=== PATIENT | female | born 1960 | race Caucasian/White ===

== ENCOUNTER 2016-08-26 06:45 | Emergency (ER) | payer OTHER ==
[2016-08-26] MEDS ORDERED: Nitrostat 0.4 MG (ED) SL ONE ×4 (07:20→08:02)
[2016-08-26] MEDS ORDERED: BABY ASPIRIN 81 MG CHEW PO ONE (07:22)
[2016-08-26] MEDS ORDERED: BABY ASPIRIN 81 MG CHEW ONE (07:26)
[2016-08-26] MEDS ORDERED: Sodium Chloride 0.9% 1000 ML 1,000 ML ONE (07:26)
[2016-08-26] MEDS ORDERED: Sodium Chloride 0.9% 1000 ML 1,000 ML IV SCH (07:30)
[2016-08-26 07:33] LABS: BASOPHIL % 0.5 % (0.0-0.4); Eosinophil % 1.4 % (0.00-5.0); Granulocytes % 63.3 % (36.0-66.0); Lymphocytes % 26.8 % (24.0-44.0); Mean Cell Volume 95.5 fl (78-100); Mean Corpuscular Hemoglobin 31.3 pg (26-32); Mean Platelet Volume 10.9 fl (6-9.5); Platelet Count 212 K/mm3 (150-450); Red Blood Count 4.44 M/mm3 (4.1-5.4); Red Cell Distribution Width 12.3 % (11.5-14.0); White Blood Count 5.6 K/mm3 (4.0-10.5)
[2016-08-26 07:49] LABS: INR 0.96 (0.8-3.0); PROTIME 10.8 SECONDS (9.95-12.35)
[2016-08-26 07:53] VITALS: PULSE 58
[2016-08-26] MEDS ORDERED: Zofran 4 MG/2 ML VIAL IV ONE (07:55)
--- NOTE | 2016-08-26 07:55 | ERPHSYRPT ---
- History of Present Illness Time Seen by Provider: 08/26/16 07:10 Historian: patient Exam Limitations: clinical condition Patient Subjective Stated Complaint: STATES THAT SHE HAS BEEN HAVING INTERMITTENT CP FOR ROUGHLY 3-4 DAYS WITH NAUSEA - STATES THAT PAIN IS GETTING WORSE, BEGINNING ON THE RIGHT CHEST AND RADIATING UP INTO THE RIGHT JAW AND EAR AND DOWN THE RIGHT ARM WITH EPIGASTRIC PAIN AND NAUSEA - Triage Nursing Assessment: AMBUALTORY TO TREATMENT AREA - STEADY GAIT - MOVES ALL EXTREMITIES WITH EQUAL STRENGTH. ALERT ORIENTED - FLAT AFFECT. SKIN PWD - NO RASH/INJURY. RESPS EASY- NON-LABORED Physician History: PATIENT WITH HISTORY OF CORONARY ARTERY DISEASE COMPLAINS OF SUBSTERNAL CHEST PAINS FOR 2-3 DAYS, RADIATES TO RIGHT SIDE OF JAW AND DOWN HER RIGHT ARM, AND DYSPNEA FOR 6 MONTHS. Timing/Duration: day(s) Activities at Onset: none Quality: pressure, sharpness Location: substernal Chest Pain Radiation: jaw, neck Severity of Pain-Max: moderate Severity of Pain-Current: moderate Modifying Factors: Improves With: nitroglycerin Prior Chest Pain/Cardiac Workup: cardiac cath Nitro Today/Relief: 0.4 mg x 2, provided by ED Aspirin Treatment Today: 81 mg x 4, provided by ED Allergies/Adverse Reactions: No Known Drug Allergies Allergy (Unverified 08/26/16 06:55) Home Medications: Carisoprodol 350 mg [Soma 350 mg] 350 mg PO BID 01/07/12 [History] Hydrocodone/APAP 5/325 [[place] 5/325 mg] 10 - 325 mg PO BID 01/07/12 [ History] Levothyroxine Sodium 150 Mcg [Synthroid 150 Mcg] 125 mcg PO DAILY 01/08/12 [ History] Aspirin 81 mg PO DAILY 08/26/16 [History] Magnesium Oxide 400 mg [Mag-Ox 400] 400 mg PO DAILY 08/26/16 [History] Hx Tetanus, Diphtheria Vaccination/Date Given: Yes Hx Influenza Vaccination/Date Given: No Hx Pneumococcal Vaccination/Date Given: No Immunizations Up to Date: Yes - Review of Systems Constitutional: No Fever, No Chills Eyes: No Symptoms Ears, Nose, & Throat: No Symptoms Respiratory: Dyspnea, No Cough Cardiac: Chest Pain, Orthopnea, No Edema, No Syncope Abdominal/Gastrointestinal: No Abdominal Pain, No Nausea, No Vomiting, No Diarrhea Genitourinary Symptoms: No Symptoms, No Dysuria Musculoskeletal: No Symptoms, No Back Pain, No Neck Pain Skin: No Symptoms, No Rash Neurological: No Dizziness, No Focal Weakness, No Sensory Changes Psychological: No Symptoms Endocrine: No Symptoms All Other Systems: Reviewed and Negative - Past Medical History Pertinent Past Medical History: Yes (unknwon) Cardiac History: High Cholesterol Other Medical History: non verbal- - Past Surgical History Past Surgical History: Yes Gastrointestinal: Cholecystectomy Female Surgical History: Hysterectomy, Section Other Surgical History: non verbal no scars noted - Social History Smoking Status: Former smoker Exposure to second hand smoke: No Patient Lives Alone: No - Female History Hx Last Menstrual Period: N/A - Nursing Vital Signs Temperature: 98.2 F Temperature Source: Oral Pulse Rate: 58 Respiratory Rate: 14 Pain Intensity: 4 - Physical Exam General Appearance: no apparent distress, alert Eye Exam: PERRL/EOMI, eyes nml inspection Ears, Nose, Throat Exam: normal ENT inspection, moist mucous membranes Neck Exam: normal inspection, non-tender, supple, full range of motion Respiratory Exam: normal breath sounds, chest tenderness (RIGHT PARASTERNAL T-2 TO T-5), lungs clear, No respiratory distress Cardiovascular Exam: regular rate/rhythm, normal heart sounds Gastrointestinal/Abdomen Exam: soft, normal bowel sounds, No tenderness, No mass Back Exam: normal inspection, No CVA tenderness, No vertebral tenderness Extremity Exam: normal inspection, normal range of motion Neurologic Exam: alert, oriented x 3, cooperative, normal mood/affect, sensation nml, No motor deficits Skin Exam: normal color, warm, dry SpO2 Interpretation: normal SpO2: 99 Oxygen Delivery: Nasal Cannula - Course EKG Interpreted by Me: RATE, Sinus Rhythm, NORMAL AXIS (RATE 59) - Radiology Exams Chest X-ray Interpretation: Discussed w/ radiologist, Negative Ordered Tests: Active Orders 24 hr Category Date Time Status Inseamer STAT Care 08/26/16 07:20 Active EKG-ER Only STAT Care 08/26/16 07:20 Active IV Insertion STAT Care 08/26/16 07:24 Active Oxygen-ED Only NASAL CANNULA 2 lpm Care 08/26/16 07:20 Active CHEST 1 VIEW (PORTABLE) Stat Exams 08/26/16 07:21 Completed CBC W DIFF Stat Lab 08/26/16 07:20 Completed CMP Stat Lab 08/26/16 07:20 Completed D-DIMER QUANTITATION Stat Lab 08/26/16 07:20 Completed PROTIME WITH INR Stat Lab 08/26/16 07:20 Completed TROPONIN Q3H Lab 08/26/16 07:20 Completed TROPONIN Q3H Lab 08/26/16 10:30 Ordered TROPONIN Q3H Lab 08/26/16 13:30 Ordered TROPONIN Q3H Lab 08/26/16 16:30 Ordered TROPONIN Q3H Lab 08/26/16 19:30 Ordered Medication Summary Generic Name Dose Route Start Last Admin Trade Name Freq PRN Reason Stop Dose Admin Sodium Chloride 1,000 mls @ 50 mls/hr 08/26/16 07:30 08/26/16 07:28 Sodium Chloride 0.9% 1000 Ml IV 09/25/16 07:29 50 mls/hr .Q20H LASHAE Administration Discontinued Medications Generic Name Dose Route Start Last Admin Trade Name Freq PRN Reason Stop Dose Admin Aspirin 324 mg 08/26/16 07:22 08/26/16 07:29 Baby Aspirin 81 Mg Chew PO 08/26/16 07:23 324 mg STAT ONE Administration Aspirin Confirm 08/26/16 07:26 Baby Aspirin 81 Mg Chew Administered 08/26/16 07:27 Dose 324 mg .ROUTE .STK-MED ONE Morphine Sulfate 4 mg 08/26/16 07:56 08/26/16 08:05 Morphine Sulfate 4 Mg Inj IV 08/26/16 07:57 4 mg STAT ONE Administration Morphine Sulfate Confirm 08/26/16 08:02 Morphine Sulfate 4 Mg Inj Administered 08/26/16 08:03 Dose 4 mg .ROUTE .STK-MED ONE Nitroglycerin 0.4 mg 08/26/16 07:20 08/26/16 07:29 Nitrostat 0.4 Mg (Ed) SL 08/26/16 07:21 0.4 mg STAT ONE Administration Nitroglycerin Confirm 08/26/16 07:26 Nitrostat 0.4 Mg (Ed) Administered 08/26/16 07:27 Dose 0.4 mg SL .STK-MED ONE Nitroglycerin 0.4 mg 08/26/16 07:55 08/26/16 08:05 Nitrostat 0.4 Mg (Ed) SL 08/26/16 07:56 0.4 mg STAT ONE Administration Nitroglycerin Confirm 08/26/16 08:02 Nitrostat 0.4 Mg (Ed) Administered 08/26/16 08:03 Dose 0.4 mg SL .STK-MED ONE Ondansetron HCl 4 mg 08/26/16 07:55 08/26/16 08:05 Zofran 4 Mg/2 Ml Vial IV 08/26/16 07:56 4 mg STAT ONE Administration Ondansetron HCl Confirm 08/26/16 08:01 Zofran 4 Mg/2 Ml Vial Administered 08/26/16 08:02 Dose 4 mg .ROUTE .STK-MED ONE Lab/Rad Data: Laboratory Result Diagrams 08/26/16 07:20 08/26/16 07:20 Laboratory Results 08/26/16 08/26/16 08/26/16 Range/Units 07:20 07:20 07:20 WBC (4.0-10.5) K/mm3 RBC (4.1-5.4) M/mm3 Hgb (12.0-16.0) gm/dl Hct (35-47) % MCV (78-100) fl MCH (26-32) pg MCHC (32-36) g/dl RDW (11.5-14.0) % Plt Count (150-450) K/mm3 MPV (6-9.5) fl Gran % (36.0-66.0) % Lymphocytes % (24.0-44.0) % Monocytes % (0.0-12.0) % Eosinophils % (0.00-5.0) % Basophils % (0.0-0.4) % Basophils # (0-0.4) INR 0.96 (0.8-3.0) D-Dimer 0.227 (0.00-0.49) mg/L Sodium 140 (136-145) mEq/L Potassium 4.2 (3.5-5.1) mEq/L Chloride 104 (98-107) mEq/L Carbon Dioxide 29.2 (21-32) mEq/L Anion Gap 11.4 (5-15) MEQ/L BUN 21 H (9-20) mg/dL Creatinine 0.79 (0.55-1.30) mg/dl Estimated GFR > 60 ML/MIN Glucose 116 H (70-110) MG/DL Calcium 9.3 (8.5-10.1) mg/dL Total Bilirubin 0.4 (0.2-1.0) mg/dL AST 15 (15-37) U/L ALT 32 (12-78) U/L Alkaline Phosphatase 103 (46-116) U/L Troponin I < 0.017 (0.000-0.056) ng/ml Serum Total Protein 7.5 (6.4-8.2) gm/dL Albumin 3.9 (3.4-5.0) g/dL 08/26/16 Range/Units 07:20 WBC 5.6 (4.0-10.5) K/mm3 RBC 4.44 (4.1-5.4) M/mm3 Hgb 13.9 (12.0-16.0) gm/dl Hct 42.4 (35-47) % MCV 95.5 (78-100) fl MCH 31.3 (26-32) pg MCHC 32.8 (32-36) g/dl RDW 12.3 (11.5-14.0) % Plt Count 212 (150-450) K/mm3 MPV 10.9 H (6-9.5) fl Gran % 63.3 (36.0-66.0) % Lymphocytes % 26.8 (24.0-44.0) % Monocytes % 8.0 (0.0-12.0) % Eosinophils % 1.4 (0.00-5.0) % Basophils % 0.5 (0.0-0.4) % Basophils # 0.03 (0-0.4) INR (0.8-3.0) D-Dimer (0.00-0.49) mg/L Sodium (136-145) mEq/L Potassium (3.5-5.1) mEq/L Chloride (98-107) mEq/L Carbon Dioxide (21-32) mEq/L Anion Gap (5-15) MEQ/L BUN (9-20) mg/dL Creatinine (0.55-1.30) mg/dl Estimated GFR ML/MIN Glucose (70-110) MG/DL Calcium (8.5-10.1) mg/dL Total Bilirubin (0.2-1.0) mg/dL AST (15-37) U/L ALT (12-78) U/L Alkaline Phosphatase (46-116) U/L Troponin I (0.000-0.056) ng/ml Serum Total Protein (6.4-8.2) gm/dL Albumin (3.4-5.0) g/dL - Progress Progress: improved Progress Note: 08/26/16 08:07 PATIENT GIVEN IV NORMAL SALINE 50ML/HR, 4 BABY ASPIRIN, NITRO 0.4MG SL X2 MODERATE RELIEF OF PAIN Discussed with .: Other (DISCUSSED WITH [employer] DR [place] [address] ACCEPTS TRANSFER TO [facility]IA [facility]) - Departure Time of Disposition: 10:15 Departure Disposition: Observation Clinical Impression: Acute chest pain Condition: Stable Critical Care Time: No Referrals: BERNIE MCNEAL [Primary Care Provider] -
[2016-08-26] MEDS ORDERED: MORPHINE SULFATE 4 MG INJ IV ONE (07:56)
[2016-08-26 07:57] LABS: ALBUMIN 3.9 g/dL (3.4-5.0); ALKALINE PHOSPHATASE 103 U/L (46-116); ANION GAP 11.4 MEQ/L (5-15); BILIRUBIN,TOTAL 0.4 mg/dL (0.2-1.0); BLOOD UREA NITROGEN 21 mg/dL (9-20); CHLORIDE 104 mEq/L (98-107); Carbon Dioxide 29.2 mEq/L (21-32); Glucose 116 MG/DL (70-110); Potassium 4.2 mEq/L (3.5-5.1); SGOT/AST 15 U/L (15-37); SGPT/ALT 32 U/L (12-78); SODIUM 140 mEq/L (136-145); Total Protein 7.5 gm/dL (6.4-8.2)
[2016-08-26] MEDS ORDERED: Zofran 4 MG/2 ML VIAL ONE (08:01)
[2016-08-26] MEDS ORDERED: MORPHINE SULFATE 4 MG INJ ONE (08:02)
[2016-08-26 08:54] VITALS: O2SAT 99
--- NOTE | 2016-08-26 09:14 | XRAY ---
Indication: Chest pain and dyspnea. Comparison: April 24, 2009. Portable chest remains clear. Heart is not enlarged. Bony thorax intact again with minimal degenerative changes and previous lower cervical fusion surgery. Impression: Stable nonacute chest.
[2016-08-26 09:43] VITALS: BP 127/76
== END 2016-08-26 10:25 | disposition short-term general hospital (02) ==
LOC: ED 06:45
DX: R07.89 Other chest pain (principal); R11.0 Nausea; R10.13 Epigastric pain; I25.10 Atherosclerotic heart disease of native coronary artery without angina pectoris; R06.00 Dyspnea, unspecified
CPT/HCPCS: 36000; 36415; 71010; 80053; 84484; 85025; 85379; 85610; 93005; 93041; 96374; 96375; 99285; J2270; J2405; A9270-GY

== ENCOUNTER 2018-01-07 10:19 | Emergency (ER) | payer OTHER ==
--- NOTE | 2018-01-07 10:32 | ERPHSYRPT ---
- History of Present Illness Time Seen by Provider: 01/07/18 10:31 Source: patient Exam Limitations: no limitations Physician History: 57 y/o right handed white female presents with right elbow redness, swelling and tenderness for 12 days. when at work, the swelling increases. after a nights sleep, the swelling and tenderness improves. pt has pain meds at home and does not need any more. pt concerned because area is warm Occurred: days ago (12) Method of Injury: unknown (no injury) Severity of Pain-Max: mild Severity of Pain-Current: mild Extremities Pain Location: elbow: right Modifying Factors: Improves With: movement (worsens pain), rest, other ( elevation) Associated Symptoms: No back pain, No chills, No chest discomfort, No chest pain , No dyspnea, No fever, No nausea, No neck pain, No short of breath, No vomiting Allergies/Adverse Reactions: No Known Drug Allergies Allergy (Unverified 08/26/16 06:55) Home Medications: Carisoprodol 350 mg [Soma 350 mg] 350 mg PO BID 01/07/12 [History] Levothyroxine Sodium 150 Mcg [Synthroid 150 Mcg] 125 mcg PO DAILY 01/08/12 [ History] Aspirin 81 mg PO DAILY 08/26/16 [History] Magnesium Oxide 400 mg [Mag-Ox 400] 400 mg PO DAILY 08/26/16 [History] Clopidogrel Bisulfate 75 mg [PLAVIX 75 MG Tablet] 75 mg PO DAILY 01/07/18 [History] Isosorbide Mononitrate 30 mg [Imdur 30 MG] 30 mg DAILY 01/07/18 [History] Lansoprazole [Prevacid] 30 mg DAILY 01/07/18 [History] Oxycodone HCl/Acetaminophen [Percocet 10-325 mg Tablet] 1 ea DAILY 01/07/18 [ History] Hx Tetanus, Diphtheria Vaccination/Date Given: Yes Hx Influenza Vaccination/Date Given: No Hx Pneumococcal Vaccination/Date Given: No - Review of Systems Constitutional: No Symptoms, No Fever, No Chills Eyes: No Symptoms Ears, Nose, & Throat: No Symptoms, No Ear Pain Respiratory: No Symptoms, No Cough, No Dyspnea, No Stridor, No Wheezing Cardiac: No Symptoms, No Chest Pain, No Palpitations, No Syncope Abdominal/Gastrointestinal: No Symptoms, No Abdominal Pain, No Nausea, No Vomiting, No Diarrhea Genitourinary Symptoms: No Symptoms, No Dysuria, No Frequency, No Hematuria Musculoskeletal: Joint Redness, Joint Swelling (right elbow), No Back Pain, No Neck Pain Skin: No Symptoms Neurological: No Symptoms Psychological: No Symptoms Endocrine: No Symptoms Hematologic/Lymphatic: No Symptoms Immunological/Allergic: No Symptoms All Other Systems: Reviewed and Negative - Past Medical History Pertinent Past Medical History: Yes (unknwon) Neurological History: No Pertinent History ENT History: No Pertinent History Cardiac History: High Cholesterol Respiratory History: No Pertinent History Endocrine Medical History: No Pertinent History Musculoskeletal History: No Pertinent History GI Medical History: No Pertinent History History: No Pertinent History Psycho-Social History: No Pertinent History Female Reproductive Disorders: No Pertinent History Other Medical History: non verbal- - Past Surgical History Past Surgical History: Yes Neuro Surgical History: No Pertinent History Cardiac: No Pertinent History Respiratory: No Pertinent History Gastrointestinal: Cholecystectomy Female Surgical History: Hysterectomy, Section Other Surgical History: non verbal no scars noted - Social History Smoking Status: Former smoker Exposure to second hand smoke: No Patient Lives Alone: No - Nursing Vital Signs Nursing Vital Signs: Initial Vital Signs Temperature 97.9 F 01/07/18 10:32 Pulse Rate 74 01/07/18 10:32 Respiratory Rate 20 01/07/18 10:32 Blood Pressure 130/79 01/07/18 10:32 O2 Sat by Pulse Oximetry 94 L 01/07/18 10:32 Pain Scale Pain Intensity 2 - Physical Exam General Appearance: no apparent distress, alert, anxiety Eyes, Ears, Nose, Throat Exam: normal ENT inspection Neck Exam: normal inspection, non-tender, supple, full range of motion Cardiovascular/Respiratory Exam: chest non-tender, normal breath sounds, regular rate/rhythm Abdominal Exam: non-tender Back Exam: normal inspection, normal range of motion, No CVA tenderness, No vertebral tenderness Shoulder Exam: normal inspection, non-tender, no evidence of injury, normal ROM Elbow/Forearm Exam: no evidence of injury, normal ROM, soft tissue tenderness, swelling (right elbow with redness and warmth), No abrasions, No deformity Wrist Exam: normal inspection, non-tender, no evidence of injury, normal ROM Hand Exam: normal inspection, non-tender, no evidence of injury, normal ROM Neuro/Tendon Exam: normal sensation, normal motor functions, normal tendon functions, responds to pain, no evidence tendon injury Mental Status Exam: alert, oriented x 3, cooperative Skin Exam: warm, other (tenderness, redness, warmth and swelling right elbow) SpO2 Interpretation: normal Oxygen Delivery: Room Air - Course Nursing assessment & vital signs reviewed: Yes - Progress Progress: pain not gone completely Counseled pt/family regarding: diagnosis, need for follow-up - Departure Time of Disposition: 10:51 Departure Disposition: Home Clinical Impression: Bursitis of right elbow Clinical Impression: (Ruled Out): Bursitis of left elbow Condition: Good Critical Care Time: No Referrals: BERNIE MCNEAL [Primary Care Provider] - Additional Instructions: ice pack to right elbow 3 times daily for 2 days. elevate right elbow above level of heart. wrap elbow with yan wrap for compression. take your pain medications as prescribed. follow up with orthopedic surgeon for further management. Prescriptions: Ciprofloxacin [Cipro 500 MG] 500 mg PO BID #14 tablet Prednisone 10 mg [Deltasone 10 mg] 10 mg PO BID #8 tablet
[2018-01-07 11:08] VITALS: BP 105/74; PULSE 67; O2SAT 98
== END 2018-01-07 11:07 | disposition home or self-care (01) ==
LOC: ED 10:19
DX: M70.31 Other bursitis of elbow, right elbow (principal); Z79.01 Long term (current) use of anticoagulants; Z79.899 Other long term (current) drug therapy
CPT/HCPCS: 99283

== ENCOUNTER 2018-03-03 07:05 | Emergency (ER) | payer OTHER ==
--- NOTE | 2018-03-03 07:09 | ERPHSYRPT ---
- History of Present Illness Historian: patient Exam Limitations: no limitations Hx Tetanus, Diphtheria Vaccination/Date Given: Yes Hx Influenza Vaccination/Date Given: No Hx Pneumococcal Vaccination/Date Given: No <ELZA BUENO - Last Filed: 03/03/18 07:09> - History of Present Illness Timing/Duration: today Activities at Onset: sleep Quality: pressure, sharpness Abdominal Pain Onset Location: RUQ Pain Radiation: chest, back Severity of Pain-Max: moderate Severity of Pain-Current: mild Modifying Factors: Improves With: nothing Associated Symptoms: chest pain, nausea, No diaphoresis, No diarrhea, No fever/ chills, No fatigue, No headache, No heartburn, No loss of appetite, No neck pain , No shortness of breath, No syncope, No testicular pain, No vomiting, No weakness Previous symptoms: no prior history <JANIE WILLIAMSON - Last Filed: 03/03/18 12:17> - History of Present Illness Time Seen by Provider: 03/03/18 07:09 Physician History: 57 y/o white female presents with abdominal pain. (ELZA BUENO) 57 y/o white femal presents with first nausea then ruq abd pain with radiation cranially into right chest and into back. pt has had a cholecystectomy and a cardiac stent placed. pts cardiac stent placed october 2017. sx woke her from a sleep at 0230 this am. pt took 3 ntg, her cardiac meds and a single baby asa. additionally, pt took a pain medication without relief of her sx. pt not soa. denies cough. (JANIE WILLIAMSON) Allergies/Adverse Reactions: No Known Drug Allergies Allergy (Verified 03/03/18 07:35) Home Medications: Carisoprodol 350 mg [Soma 350 mg] 350 mg PO BID 01/07/12 [History] Levothyroxine Sodium 150 Mcg [Synthroid 150 Mcg] 125 mcg PO DAILY 01/08/12 [ History] Aspirin 81 mg PO DAILY 08/26/16 [History] Clopidogrel Bisulfate 75 mg [PLAVIX 75 MG Tablet] 75 mg PO DAILY 01/07/18 [History] Isosorbide Mononitrate 30 mg [Imdur 30 MG] 30 mg PO DAILY 01/07/18 [History ] Lansoprazole [Prevacid] 40 mg PO DAILY 01/07/18 [History] Oxycodone HCl/Acetaminophen [Percocet 10-325 mg Tablet] 1 tab PO Q6H PRN [History] Fexofenadine HCl 180 mg PO DAILY 03/03/18 [History] Ranolazine 500 MG [Ranexa 500 MG] 500 mg PO BID 03/03/18 [History] - Review of Systems Constitutional: No Symptoms, No Fever Eyes: No Symptoms Ears, Nose, & Throat: No Symptoms Respiratory: No Symptoms Cardiac: Chest Pain, Palpitations, Syncope Abdominal/Gastrointestinal: No Symptoms Genitourinary Symptoms: No Symptoms Musculoskeletal: No Symptoms Skin: No Symptoms Neurological: No Symptoms Psychological: No Symptoms Endocrine: No Symptoms Hematologic/Lymphatic: No Symptoms Immunological/Allergic: No Symptoms All Other Systems: Reviewed and Negative <JANIE WILLIAMSON - Last Filed: 03/03/18 12:17> - Past Medical History Pertinent Past Medical History: Yes ([place]) Neurological History: No Pertinent History ENT History: No Pertinent History Cardiac History: High Cholesterol Respiratory History: No Pertinent History Endocrine Medical History: No Pertinent History Musculoskeletal History: No Pertinent History GI Medical History: No Pertinent History History: No Pertinent History Psycho-Social History: No Pertinent History Female Reproductive Disorders: No Pertinent History Other Medical History: non verbal- - Past Surgical History Past Surgical History: Yes Neuro Surgical History: No Pertinent History Cardiac: No Pertinent History Respiratory: No Pertinent History Gastrointestinal: Cholecystectomy Musculoskeletal: Orthopedic Surgery Female Surgical History: Hysterectomy, Section Other Surgical History: non verbal no scars noted - Social History Smoking Status: Former smoker Exposure to second hand smoke: No Drug Use: none Patient Lives Alone: No <ELZA BUENO - Last Filed: 03/03/18 07:09> - Past Medical History Neurological History: No Pertinent History ENT History: No Pertinent History Cardiac History: Myocardial Infarction ([place]) Respiratory History: No Pertinent History Endocrine Medical History: No Pertinent History Musculoskeletal History: No Pertinent History - Past Surgical History Neuro Surgical History: No Pertinent History Cardiac: Cardiac Stent Respiratory: No Pertinent History <JANIE WILLIAMSON - Last Filed: 03/03/18 12:17> - Physical Exam General Appearance: mild distress, alert, anxiety Eye Exam: PERRL/EOMI Ears, Nose, Throat Exam: normal ENT inspection, moist mucous membranes Neck Exam: normal inspection, non-tender, supple, full range of motion Respiratory Exam: normal breath sounds, chest tenderness, lungs clear, airway intact, No respiratory distress, No accessory muscle use, No rhonchi, No wheezing, No stridor Cardiovascular Exam: regular rate/rhythm, normal heart sounds, normal peripheral pulses Gastrointestinal/Abdomen Exam: soft, normal bowel sounds, No tenderness, No guarding Pelvic Exam: not done Rectal Exam: not done Back Exam: normal inspection, normal range of motion, No CVA tenderness, No vertebral tenderness Extremity Exam: normal inspection, normal range of motion, pelvis stable Neurologic Exam: alert, oriented x 3, cooperative, senior director creative services II-XII nml as tested Skin Exam: normal color, warm, dry Lymphatic Exam: No adenopathy SpO2 Interpretation: normal <JANIE WILLIAMSON - Last Filed: 03/03/18 12:17> - Nursing Vital Signs Nursing Vital Signs: Initial Vital Signs Temperature 97.7 F 03/03/18 07:08 Pulse Rate 56 L 03/03/18 07:08 Blood Pressure 167/95 03/03/18 07:08 O2 Sat by Pulse Oximetry 98 03/03/18 07:08 Pain Scale Pain Intensity 8 - Course Nursing assessment & vital signs reviewed: Yes EKG Interpreted by Me: RATE (53), Sinus Rhythm, NORMAL AXIS, NORMAL INTERVALS, NORMAL QRS, NORMAL ST-T (no change from ekg dated 08/26/16) <JANIE WILLIAMSON - Last Filed: 03/03/18 12:17> Ordered Tests: Active Orders 24 hr Category Date Time Status [employer] STAT Care 03/03/18 07:27 Active EKG-ER Only STAT Care 03/03/18 07:26 Active IV Insertion STAT Care 03/03/18 07:26 Active CHEST 1 VIEW (PORTABLE) Stat Exams 03/03/18 07:27 Completed CBC W DIFF Stat Lab 03/03/18 07:26 Completed CMP Stat Lab 03/03/18 07:35 Completed D-DIMER QUANTITATION Stat Lab 03/03/18 07:35 Completed NT PRO BNP Stat Lab 03/03/18 07:35 Completed PROTIME WITH INR Stat Lab 03/03/18 07:35 Completed TROPONIN Q3H Lab 03/03/18 07:35 Completed TROPONIN Q3H Lab 03/03/18 10:12 Completed TROPONIN Q3H Lab 03/03/18 13:30 Ordered TROPONIN Q3H Lab 03/03/18 16:30 Ordered TROPONIN Q3H Lab 03/03/18 19:30 Ordered Urinalysis with Microscopy Stat Lab 03/03/18 09:24 Completed Medication Summary Discontinued Medications Generic Name Dose Route Start Last Admin Trade Name Elq PRN Reason Stop Dose Admin Aspirin 243 mg 03/03/18 07:26 03/03/18 07:40 Baby Aspirin 81 Mg Chew PO 03/03/18 07:27 243 mg STAT ONE Administration Aspirin Confirm 03/03/18 07:40 Baby Aspirin 81 Mg Chew Administered 03/03/18 07:41 Dose 243 mg .ROUTE .STK-MED ONE Metoprolol Tartrate 2.5 mg 03/03/18 07:54 03/03/18 08:17 Lopressor 5 Mg/5 Ml Injection IV 03/03/18 07:55 Not Given STAT ONE Morphine Sulfate 2 mg 03/03/18 09:02 03/03/18 09:07 Morphine Sulfate 2 Mg Inj IV 03/03/18 09:03 2 mg STAT ONE Administration Morphine Sulfate Confirm 03/03/18 09:05 Morphine Sulfate 2 Mg Inj Administered 03/03/18 09:06 Dose 2 mg .ROUTE .STK-MED ONE Ondansetron HCl 4 mg 03/03/18 09:06 03/03/18 09:10 Zofran 4 Mg/2 Ml Vial IV 03/03/18 09:07 4 mg STAT ONE Administration Ondansetron HCl Confirm 03/03/18 09:09 Zofran 4 Mg/2 Ml Vial Administered 03/03/18 09:10 Dose 4 mg .ROUTE .STK-MED ONE Lab/Rad Data: Laboratory Result Diagrams 03/03/18 07:26 03/03/18 07:35 Laboratory Results 03/03/18 03/03/18 03/03/18 Range/Units 10:12 09:24 07:35 WBC (4.0-10.5) K/mm3 RBC (4.1-5.4) M/mm3 Hgb (12.0-16.0) gm/dl Hct (35-47) % MCV (78-100) fl MCH (26-32) pg MCHC (32-36) g/dl RDW (11.5-14.0) % Plt Count (150-450) K/mm3 MPV (6-9.5) fl Gran % (36.0-66.0) % Eos # (Auto) (0-0.5) Absolute Lymphs (auto) (1.0-4.6) Absolute Monos (auto) (0.0-1.3) Lymphocytes % (24.0-44.0) % Monocytes % (0.0-12.0) % Eosinophils % (0.00-5.0) % Basophils % (0.0-0.4) % Absolute Granulocytes (1.4-6.9) Basophils # (0-0.4) PT (9.95-12.35) SECONDS INR (0.8-3.0) D-Dimer (215-500) ng/mL Sodium (137-145) mmol/L Potassium (3.5-5.1) mmol/L Chloride (98-107) mmol/L Carbon Dioxide (22-30) mmol/L Anion Gap (5-15) MEQ/L BUN (7-17) mg/dL Creatinine (0.52-1.04) mg/dL Estimated GFR ML/MIN Glucose (74-106) mg/dL Calcium (8.4-10.2) mg/dL Total Bilirubin (0.2-1.3) mg/dL AST (14-36) U/L ALT (0-35) U/L Alkaline Phosphatase (38-126) U/L Troponin I < 0.012 < 0.012 (0.000-0.034) ng/mL NT-Pro-B Natriuret Pep (0-900) pg/mL Serum Total Protein (6.3-8.2) g/dL Albumin (3.5-5.0) g/dL Urine Color YELLOW (YELLOW) Urine Appearance CLEAR (CLEAR) Urine pH 5.0 (5-6) Ur Specific Mcgrady 1.029 (1.005-1.025) Urine Protein NEGATIVE (Negative) Urine Ketones NEGATIVE (NEGATIVE) Urine Blood NEGATIVE (0-5) Santy/ul Urine Nitrite NEGATIVE (NEGATIVE) Urine Bilirubin NEGATIVE (NEGATIVE) Urine Urobilinogen NEGATIVE (0-1) mg/dL Ur Leukocyte Esterase TRACE (NEGATIVE) Urine WBC (Auto) 6-10 (0-5) /HPF Urine RBC (Auto) NONE (0-2) /HPF U Epithel Cells (Auto) RARE (FEW) /HPF Urine Bacteria (Auto) FEW (NEGATIVE) /HPF Urine Mucus (Auto) SLIGHT (NEGATIVE) /HPF Urine Glucose NEGATIVE (NEGATIVE) mg/dL 03/03/18 03/03/18 03/03/18 Range/Units 07:35 07:35 07:26 WBC 5.4 (4.0-10.5) K/mm3 RBC 4.44 (4.1-5.4) M/mm3 Hgb 14.3 (12.0-16.0) gm/dl Hct 43.8 (35-47) % MCV 98.6 (78-100) fl MCH 32.2 H (26-32) pg MCHC 32.6 (32-36) g/dl RDW 12.9 (11.5-14.0) % Plt Count 210 (150-450) K/mm3 MPV 10.2 H (6-9.5) fl Gran % 65.0 (36.0-66.0) % Eos # (Auto) 0.09 (0-0.5) Absolute Lymphs (auto) 1.30 (1.0-4.6) Absolute Monos (auto) 0.47 (0.0-1.3) Lymphocytes % 24.2 (24.0-44.0) % Monocytes % 8.7 (0.0-12.0) % Eosinophils % 1.7 (0.00-5.0) % Basophils % 0.4 (0.0-0.4) % Absolute Granulocytes 3.50 (1.4-6.9) Basophils # 0.02 (0-0.4) PT 11.1 (9.95-12.35) SECONDS INR 0.95 (0.8-3.0) D-Dimer < 215 L (215-500) ng/mL Sodium 140 (137-145) mmol/L Potassium 4.3 (3.5-5.1) mmol/L Chloride 100 (98-107) mmol/L Carbon Dioxide 31 H (22-30) mmol/L Anion Gap 12.3 (5-15) MEQ/L BUN 19 H (7-17) mg/dL Creatinine 0.70 (0.52-1.04) mg/dL Estimated GFR > 60.0 ML/MIN Glucose 117 H (74-106) mg/dL Calcium 9.6 (8.4-10.2) mg/dL Total Bilirubin 0.30 (0.2-1.3) mg/dL AST 19 (14-36) U/L ALT 19 (0-35) U/L Alkaline Phosphatase 80 (38-126) U/L Troponin I (0.000-0.034) ng/mL NT-Pro-B Natriuret Pep 41.9 (0-900) pg/mL Serum Total Protein 7.4 (6.3-8.2) g/dL Albumin 4.5 (3.5-5.0) g/dL Urine Color (YELLOW) Urine Appearance (CLEAR) Urine pH (5-6) Ur Specific Mcgrady (1.005-1.025) Urine Protein (Negative) Urine Ketones (NEGATIVE) Urine Blood (0-5) Santy/ul Urine Nitrite (NEGATIVE) Urine Bilirubin (NEGATIVE) Urine Urobilinogen (0-1) mg/dL Ur Leukocyte Esterase (NEGATIVE) Urine WBC (Auto) (0-5) /HPF Urine RBC (Auto) (0-2) /HPF U Epithel Cells (Auto) (FEW) /HPF Urine Bacteria (Auto) (NEGATIVE) /HPF Urine Mucus (Auto) (NEGATIVE) /HPF Urine Glucose (NEGATIVE) mg/dL <ELZA BUENO - Last Filed: 03/03/18 07:09> - Progress Progress: improved, pain not gone completely, re-examined Counseled pt/family regarding: lab results, diagnosis, need for follow-up, rad results <JANIE WILLIAMSON - Last Filed: 03/03/18 12:17> - Progress Progress Note: 03/03/18 09:02 pt states cp sig improved but not completely relieved. will give morphine 2mg, check a urine and repeat troponin 03/03/18 12:14 pts pain improved. cxr-no acute process. pt has mild uti (JANIE WILLIAMSON) <ELZA BUENO - Last Filed: 03/03/18 07:09> - Departure Time of Disposition: 12:14 Departure Disposition: Home Critical Care Time: No <JANIE WILLIAMSON - Last Filed: 03/03/18 12:17> - Departure Clinical Impression: Upper abdominal pain, Right-sided chest pain, UTI (urinary tract infection) Condition: Stable Referrals: BERNIE MCNEAL [Primary Care Provider] - Additional Instructions: drink plenty of fluids. follow up with primary doctor and rn clinical for further management. take your medications as prescribed Prescriptions: Cephalexin Mh 500 mg [Keflex 500 mg] 500 mg PO TID #21 capsule Ondansetron HCl [Zofran] 4 mg PO TID PRN #10 tablet PRN Reason: Nausea/Vomiting
[2018-03-03] MEDS ORDERED: BABY ASPIRIN 81 MG CHEW PO ONE (07:26)
[2018-03-03 07:39] LABS: BASOPHIL % 0.4 % (0.0-0.4); Basophil (Absolute #) 0.02 (0-0.4); Eosinophil % 1.7 % (0.00-5.0); Eosinophil (Absolute #) 0.09 (0-0.5); Hematocrit 43.8 % (35-47); Hemoglobin 14.3 gm/dl (12.0-16.0); Lymphocytes % 24.2 % (24.0-44.0); Mean Cell Volume 98.6 fl (78-100); Mean Corpuscular Hemoglobin 32.2 pg (26-32); Mean Corpuscular Hgb Concent. 32.6 g/dl (32-36); Mean Platelet Volume 10.2 fl (6-9.5); Monocyte (Absolute #) 0.47 (0.0-1.3); Monocytes % 8.7 % (0.0-12.0); Platelet Count 210 K/mm3 (150-450); Red Blood Count 4.44 M/mm3 (4.1-5.4); Red Cell Distribution Width 12.9 % (11.5-14.0); White Blood Count 5.4 K/mm3 (4.0-10.5)
[2018-03-03] MEDS ORDERED: BABY ASPIRIN 81 MG CHEW ONE (07:40)
[2018-03-03] MEDS ORDERED: LOPRESSOR 5 MG/5 ML INJECTION IV ONE (07:54)
[2018-03-03 07:56] LABS: INR 0.95 (0.8-3.0)
[2018-03-03 08:09] LABS: D-DIMER QUANTITATION < 215 ng/mL (215-500)
[2018-03-03 08:11] LABS: ALBUMIN 4.5 g/dL (3.5-5.0); ALKALINE PHOSPHATASE 80 U/L (38-126); ANION GAP 12.3 MEQ/L (5-15); BLOOD UREA NITROGEN 19 mg/dL (7-17); CHLORIDE 100 mmol/L (98-107); Calcium 9.6 mg/dL (8.4-10.2); Carbon Dioxide 31 mmol/L (22-30); Glucose 117 mg/dL (74-106); NT PRO BNP 41.9 pg/mL (0-900); Potassium 4.3 mmol/L (3.5-5.1); SGOT/AST 19 U/L (14-36); SGPT/ALT 19 U/L (0-35); SODIUM 140 mmol/L (137-145); Total Protein 7.4 g/dL (6.3-8.2)
--- NOTE | 2018-03-03 09:00 | XRAY ---
Indication: Right upper quadrant pain. Comparison: August 26, 2016. Portable chest again demonstrates normal heart and lungs. Bony thorax intact again with minimal degenerative changes and partially visualized lower cervical fusion surgery.
[2018-03-03] MEDS ORDERED: MORPHINE SULFATE 2 MG INJ IV ONE (09:02)
[2018-03-03] MEDS ORDERED: MORPHINE SULFATE 2 MG INJ ONE (09:05)
[2018-03-03] MEDS ORDERED: Zofran 4 MG/2 ML VIAL IV ONE (09:06)
[2018-03-03] MEDS ORDERED: Zofran 4 MG/2 ML VIAL ONE (09:09)
[2018-03-03 10:01] LABS: Appearance CLEAR (CLEAR); Bilirubin NEGATIVE (NEGATIVE); Blood NEGATIVE Ery/ul (0-5); Glucose NEGATIVE (NEGATIVE); Ketones NEGATIVE (NEGATIVE); Leukocyte Esterase TRACE (NEGATIVE); Nitrite NEGATIVE (NEGATIVE); Protein,Urine Dip NEGATIVE (Negative); Specific Gravity 1.029 (1.005-1.025); Urobilinogen NEGATIVE mg/dL (0-1)
[2018-03-03 12:22] VITALS: BP 116/71; PULSE 57; O2SAT 96
== END 2018-03-03 12:38 | disposition home or self-care (01) ==
LOC: ED 07:05
DX: R10.11 Right upper quadrant pain (principal); R07.9 Chest pain, unspecified; N39.0 Urinary tract infection, site not specified; Z79.01 Long term (current) use of anticoagulants; Z79.899 Other long term (current) drug therapy
CPT/HCPCS: 36000; 36415; 71045; 80053; 81001; 83880; 84484; 85025; 85379; 85610; 93005; 93041; 96374; 96375; 99284; J2270; J2405; A9270-GY

== ENCOUNTER 2018-04-01 11:33 | Emergency (ER) | payer OTHER ==
[2018-04-01 11:52] VITALS: BP 160/71; PULSE 62; O2SAT 97
[2018-04-01] MEDS ORDERED: TORAdol 30 mg Injection IM ONE (12:00)
[2018-04-01] MEDS ORDERED: TORAdol 30 mg Injection ONE ×2 (12:12→12:31)
--- NOTE | 2018-04-01 12:35 | XRAY ---
Indication: Pain following fall. Comparison: None 3 views of the left shoulder demonstrates nondepressed cortical fracture involving the greater tuberosity of the humerus. Elsewhere moderate AC degenerative arthropathy and partially visualized lower cervical fusion hardware. No other bony, articular, or soft tissue abnormalities.
--- NOTE | 2018-04-01 12:38 | XRAY ---
Indication: Pain following fall. Comparison: None 3 views of the left elbow obtained. No bony, articular, or soft tissue abnormalities.
--- NOTE | 2018-04-01 12:47 | ERPHSYRPT ---
- History of Present Illness Time Seen by Provider: 04/01/18 12:10 Historian: patient Patient Subjective Stated Complaint: fell last night landing on left arm.. pain in upper arm increased pain with movement Triage Nursing Assessment: alert and oriented with c/o left upper arm pain after falling last night. states fell onto concrete after tripping. denies hitting head. pain in left upper arm with movement. no obvious deformity noted.. + radial pulse present. pt removed rings and placed into biobag and given to the patient. + CMS Allergies/Adverse Reactions: No Known Drug Allergies Allergy (Verified 03/03/18 07:35) Home Medications: Carisoprodol 350 mg [Soma 350 mg] 350 mg PO BID 01/07/12 [History] Levothyroxine Sodium 150 Mcg [Synthroid 150 Mcg] 125 mcg PO DAILY 01/08/12 [ History] Aspirin 81 mg PO DAILY 08/26/16 [History] Clopidogrel Bisulfate 75 mg [PLAVIX 75 MG Tablet] 75 mg PO DAILY 01/07/18 [History] Isosorbide Mononitrate 30 mg [Imdur 30 MG] 30 mg PO DAILY 01/07/18 [History ] Lansoprazole [Prevacid] 40 mg PO DAILY 01/07/18 [History] Oxycodone HCl/Acetaminophen [Percocet 10-325 mg Tablet] 1 tab PO Q6H PRN [History] Fexofenadine HCl 180 mg PO DAILY 03/03/18 [History] Ranolazine 500 MG [Ranexa 500 MG] 500 mg PO BID 03/03/18 [History] Hx Tetanus, Diphtheria Vaccination/Date Given: Yes Hx Influenza Vaccination/Date Given: No Hx Pneumococcal Vaccination/Date Given: No Immunizations Up to Date: No - Past Medical History Pertinent Past Medical History: Yes Neurological History: No Pertinent History ENT History: No Pertinent History Cardiac History: Myocardial Infarction ([place]) Respiratory History: No Pertinent History Endocrine Medical History: No Pertinent History Musculoskeletal History: No Pertinent History GI Medical History: No Pertinent History History: No Pertinent History Psycho-Social History: No Pertinent History Female Reproductive Disorders: No Pertinent History Other Medical History: non verbal- - Past Surgical History Past Surgical History: Yes Neuro Surgical History: No Pertinent History Cardiac: Cardiac Stent Respiratory: No Pertinent History Gastrointestinal: Cholecystectomy Musculoskeletal: Orthopedic Surgery Female Surgical History: Hysterectomy, Section Other Surgical History: non verbal no scars noted - Social History Smoking Status: Former smoker Exposure to second hand smoke: No Drug Use: none Patient Lives Alone: No - Female History Hx Now: No - Nursing Vital Signs Nursing Vital Signs: Initial Vital Signs Temperature 97 F 04/01/18 11:42 Pulse Rate 62 04/01/18 11:42 Respiratory Rate 16 04/01/18 11:42 Blood Pressure 160/71 04/01/18 11:42 O2 Sat by Pulse Oximetry 97 04/01/18 11:42 Pain Scale Pain Intensity 4 - Physical Exam SpO2: 97 Oxygen Delivery: Room Air Ordered Tests: Active Orders 24 hr Category Date Time Status Immobilizer STAT Care 04/01/18 12:41 Active ELBOW (MINIMUM 3 VIEWS) Stat Exams 04/01/18 12:01 Completed SHOULDER Stat Exams 04/01/18 12:03 Completed Medication Summary Discontinued Medications Generic Name Dose Route Start Last Admin Trade Name Kizzy PRN Reason Stop Dose Admin Ketorolac Tromethamine 60 mg 04/01/18 12:00 04/01/18 12:34 Toradol 30 Mg Injection IM 04/01/18 12:01 60 mg STAT ONE Administration Ketorolac Tromethamine Confirm 04/01/18 12:12 Toradol 30 Mg Injection Administered 04/01/18 12:13 Dose 60 mg .ROUTE .STK-MED ONE Ketorolac Tromethamine Confirm 04/01/18 12:31 Toradol 30 Mg Injection Administered 04/01/18 12:32 Dose 60 mg .ROUTE .STK-MED ONE - Departure Referrals: BERNIE MCNEAL [Primary Care Provider] -
--- NOTE | 2018-04-01 12:57 | ERPHSYRPT ---
- History of Present Illness Time Seen by Provider: 04/01/18 12:10 Source: patient Exam Limitations: clinical condition Patient Subjective Stated Complaint: fell last night landing on left arm.. pain in upper arm increased pain with movement Triage Nursing Assessment: alert and oriented with c/o left upper arm pain after falling last night. states fell onto concrete after tripping. denies hitting head. pain in left upper arm with movement. no obvious deformity noted.. + radial pulse present. pt removed rings and placed into biobag and given to the patient. + [facility] Physician History: PATIENT STATES SHE FELL LAST NIGHT ONTO SHOULDER SUSTAINED INJURY TO LEFT SHOULDER, HAS ASSOCIATED SWELLING, PAIN, DENIES DEFORMITY, BRUISING. DENIES HEAD OR NECK INJURY. Occurred: yesterday Method of Injury: direct blow, fell Quality: constant Severity of Pain-Max: moderate Severity of Pain-Current: moderate Extremities Pain Location: shoulder: left Modifying Factors: Improves With: movement Associated Symptoms: none Allergies/Adverse Reactions: No Known Drug Allergies Allergy (Verified 03/03/18 07:35) Home Medications: Carisoprodol 350 mg [Soma 350 mg] 350 mg PO BID 01/07/12 [History] Levothyroxine Sodium 150 Mcg [Synthroid 150 Mcg] 125 mcg PO DAILY 01/08/12 [ History] Aspirin 81 mg PO DAILY 08/26/16 [History] Clopidogrel Bisulfate 75 mg [PLAVIX 75 MG Tablet] 75 mg PO DAILY 01/07/18 [History] Isosorbide Mononitrate 30 mg [Imdur 30 MG] 30 mg PO DAILY 01/07/18 [History ] Lansoprazole [Prevacid] 40 mg PO DAILY 01/07/18 [History] Oxycodone HCl/Acetaminophen [Percocet 10-325 mg Tablet] 1 tab PO Q6H PRN [History] Fexofenadine HCl 180 mg PO DAILY 03/03/18 [History] Ranolazine 500 MG [Ranexa 500 MG] 500 mg PO BID 03/03/18 [History] Hx Tetanus, Diphtheria Vaccination/Date Given: Yes Hx Influenza Vaccination/Date Given: No Hx Pneumococcal Vaccination/Date Given: No Immunizations Up to Date: No - Review of Systems Ears, Nose, & Throat: No Symptoms Respiratory: No Symptoms Cardiac: No Symptoms Abdominal/Gastrointestinal: No Symptoms Musculoskeletal: Injury, Joint Pain, Joint Swelling Neurological: No Symptoms Psychological: No Symptoms - Past Medical History Pertinent Past Medical History: Yes Neurological History: No Pertinent History ENT History: No Pertinent History Cardiac History: Myocardial Infarction ([place]) Respiratory History: No Pertinent History Endocrine Medical History: No Pertinent History Musculoskeletal History: No Pertinent History GI Medical History: No Pertinent History History: No Pertinent History Psycho-Social History: No Pertinent History Female Reproductive Disorders: No Pertinent History Other Medical History: non verbal- - Past Surgical History Past Surgical History: Yes Neuro Surgical History: No Pertinent History Cardiac: Cardiac Stent Respiratory: No Pertinent History Gastrointestinal: Cholecystectomy Musculoskeletal: Orthopedic Surgery Female Surgical History: Hysterectomy, Section Other Surgical History: non verbal no scars noted - Social History Smoking Status: Former smoker Exposure to second hand smoke: No Drug Use: none Patient Lives Alone: No - Female History Hx Now: No - Nursing Vital Signs Nursing Vital Signs: Initial Vital Signs Temperature 97 F 04/01/18 11:42 Pulse Rate 62 04/01/18 11:42 Respiratory Rate 16 04/01/18 11:42 Blood Pressure 160/71 04/01/18 11:42 O2 Sat by Pulse Oximetry 97 04/01/18 11:42 Pain Scale Pain Intensity 4 - Physical Exam General Appearance: mild distress Eyes, Ears, Nose, Throat Exam: normal ENT inspection Neck Exam: [place]udz[place] Cardiovascular/Respiratory Exam: chest non-tender Abdominal Exam: non-tender Shoulder Exam: limited ROM (MARKED TENDERNESS OVER LEFT GREATER TUBEROSITY, NO ECCHYMOSIS OR CREPITUS. LEFT RADIAL PLULSE 2+), pain, soft tissue tenderness, swelling Elbow/Forearm Exam: normal inspection, no evidence of injury, normal ROM DTR - Upper Extremity Exam: bicep (R): 2+, bicep (L): 2+, tricep (R): 2+, tricep (L): 2+ SpO2 Interpretation: normal SpO2: 97 Oxygen Delivery: Room Air - Radiology Exams Left Shoulder X-ray Interpretation: Discussed w/ radiologist (NONDEPRESSED CORTICAL FRACTURE INVOLVING THE GREATER TUBEROSITY OF THE HUMERUS) Left Elbow X-ray Interpretation: Discussed w/ radiologist, Negative, No Fracture Ordered Tests: Active Orders 24 hr Category Date Time Status Immobilizer STAT Care 04/01/18 12:41 Active ELBOW (MINIMUM 3 VIEWS) Stat Exams 04/01/18 12:01 Completed SHOULDER Stat Exams 04/01/18 12:03 Completed Medication Summary Discontinued Medications Generic Name Dose Route Start Last Admin Trade Name Kizzy PRN Reason Stop Dose Admin Ketorolac Tromethamine 60 mg 04/01/18 12:00 04/01/18 12:34 Toradol 30 Mg Injection IM 04/01/18 12:01 60 mg STAT ONE Administration Ketorolac Tromethamine Confirm 04/01/18 12:12 Toradol 30 Mg Injection Administered 04/01/18 12:13 Dose 60 mg .ROUTE .STK-MED ONE Ketorolac Tromethamine Confirm 04/01/18 12:31 Toradol 30 Mg Injection Administered 04/01/18 12:32 Dose 60 mg .ROUTE .STK-MED ONE Morphine Sulfate 4 mg 04/01/18 13:03 04/01/18 13:10 Morphine Sulfate 4 Mg Inj IM 04/01/18 13:04 4 mg STAT ONE Administration Morphine Sulfate Confirm 04/01/18 13:05 Morphine Sulfate 4 Mg Inj Administered 04/01/18 13:06 Dose 4 mg .ROUTE .STK-MED ONE Promethazine HCl 12.5 mg 04/01/18 13:04 04/01/18 13:23 Phenergan 25 Mg Inj IM 04/01/18 13:05 12.5 mg STAT ONE Administration Promethazine HCl Confirm 04/01/18 13:20 Phenergan 25 Mg Inj Administered 04/01/18 13:21 Dose 25 mg .ROUTE .STK-MED ONE - Progress Progress Note: 04/01/18 12:57 TORADOL 60MG IM, APPLICATION LEFT SHOULDER IMMOBLIZER Counseled pt/family regarding: diagnosis, need for follow-up - Departure Time of Disposition: 13:30 Departure Disposition: Home Clinical Impression: LEFT SHOULDER FRACTURE GREATER TUBEROSITY Condition: Stable Critical Care Time: No Referrals: BERNIE MCNEAL [Primary Care Provider] - Additional Instructions: CONTINUE PERCOCET FOR PAIN DIRECTED. MAINTAIN SHOULDER IMMOBLIZER UNTIL EVALUATED BY [facility] TODAY. TAKE COPY OF XRAY DISK TO CLINIC.
[2018-04-01] MEDS ORDERED: MORPHINE SULFATE 4 MG INJ IM ONE (13:03)
[2018-04-01] MEDS ORDERED: Phenergan 25 MG INJ IM ONE (13:04)
[2018-04-01] MEDS ORDERED: MORPHINE SULFATE 4 MG INJ ONE (13:05)
[2018-04-01] MEDS ORDERED: Phenergan 25 MG INJ ONE (13:20)
== END 2018-04-01 13:36 | disposition home or self-care (01) ==
LOC: ED 11:33
DX: S42.252A Displaced fracture of greater tuberosity of left humerus, initial encounter for closed fracture (principal); W01.198A Fall on same level from slipping, tripping and stumbling with subsequent striking against other object, initial encounter; Z79.01 Long term (current) use of anticoagulants; Z79.899 Other long term (current) drug therapy
CPT/HCPCS: 73030; 73080; 96372; 99284; J1885; J2270; J2550

== ENCOUNTER 2019-05-24 17:57 | Emergency (ER) | payer OTHER ==
[2019-05-24 18:20] VITALS: O2SAT 97
[2019-05-24 18:41] LABS: Absolute Neutrophil Ct (ANC) 6.23 (1.4-6.9); BASOPHIL % 0.3 % (0.0-0.4); Basophil (Absolute #) 0.03 (0-0.4); Eosinophil % 0.8 % (0.00-5.0); Eosinophil (Absolute #) 0.07 (0-0.5); Hematocrit 45.6 % (35-47); Hemoglobin 15.2 gm/dl (12.0-16.0); Lymphocyte (Absolute #) 1.83 (1.0-4.6); Lymphocytes % 20.4 % (24.0-44.0); Mean Cell Volume 98.3 fl (78-100); Mean Corpuscular Hemoglobin 32.8 pg (26-32); Mean Corpuscular Hgb Concent. 33.3 g/dl (32-36); Mean Platelet Volume 10.5 fl (7.5-11.0); Monocytes % 8.9 % (0.0-12.0); Neutrophil % 69.6 % (36.0-66.0); Platelet Count 268 K/mm3 (150-450); Red Blood Count 4.64 M/mm3 (4.1-5.4); Red Cell Distribution Width 13.1 % (11.5-14.0)
[2019-05-24 18:49] LABS: INR 0.9 (0.8-3.0); PROTIME 10.1 SECONDS (9.95-12.35)
[2019-05-24 18:52] LABS: PTT 30.7 SECONDS (25.3-37.0)
[2019-05-24 18:54] LABS: ALBUMIN 4.5 g/dL (3.5-5.0); ALKALINE PHOSPHATASE 88 U/L (38-126); ANION GAP 14.6 MEQ/L (5-15); BLOOD UREA NITROGEN 21 mg/dL (7-17); CHLORIDE 101 mmol/L (98-107); Calcium 10.1 mg/dL (8.4-10.2); Carbon Dioxide 28 mmol/L (22-30); Glucose 102 mg/dL (74-106); Potassium 4.4 mmol/L (3.5-5.1); SGOT/AST 20 U/L (14-36); SGPT/ALT 16 U/L (0-35); SODIUM 139 mmol/L (137-145); Total Protein 7.7 g/dL (6.3-8.2)
--- NOTE | 2019-05-24 18:57 | ERPHSYRPT ---
- History of Present Illness Time Seen by Provider: 05/24/19 18:10 Patient Subjective Stated Complaint: STATES HAS BEEN HAVING UPPER EPIGASTRIC PAIN THAT RADIATES INTO CHEST AND MIDDLE OF BACK FOR TWO WEEKS. HX OF CAD WITH STENT PLACEMENT AND WAS CONCERNED PAIN MAY BE HEART RELATED. STATES TODAY HAD EPISODE OF SEVERE PAIN WITH DIAPHORESIS AND NAUSEA. STATES PAIN IS INTERMITTENT. Triage Nursing Assessment: AMBULATED TO ROOM PER SELF. SKIN W/D, COLOR NORMAL, RESP NONLABORED. PATIENT HOLDING UPPER ABD. Timing/Duration: week(s) (Intermittent chest pain for 3 weeks but acutely worse today. ) Activities at Onset: none Quality: aching Location: substernal, epigastric Chest Pain Radiation: back Severity of Pain-Max: moderate Severity of Pain-Current: moderate Modifying Factors: Improves With: nothing Associated Symptoms: nausea, shortness of breath, diaphoresis, dizziness Prior Chest Pain/Cardiac Workup: no prior chest pain, heart attack Aspirin Treatment Today: 325 mg x 1 Allergies/Adverse Reactions: No Known Drug Allergies Allergy (Verified 05/24/19 18:09) Home Medications: Carisoprodol 350 mg [Soma 350 mg] 350 mg PO HS 01/07/12 [History] Levothyroxine Sodium 150 Mcg [Synthroid 150 Mcg] 125 mcg PO DAILY 01/08/12 [ History] Oxycodone HCl/Acetaminophen [Percocet 10-325 mg Tablet] 1 tab PO Q6H PRN [History] Duloxetine HCl 60 mg PO BID 05/24/19 [History] PANTOPRAZOLE 40 mg Tablet [Protonix 40MG Tablet] 40 mg PO QAM 05/24/19 [ History] Phentermine HCl 37.5 mg PO DAILY 05/24/19 [History] Hx Tetanus, Diphtheria Vaccination/Date Given: No Hx Influenza Vaccination/Date Given: Yes Hx Pneumococcal Vaccination/Date Given: Yes - Review of Systems Constitutional: No Fever, No Chills Eyes: No Symptoms Ears, Nose, & Throat: No Symptoms Respiratory: No Cough, No Dyspnea Cardiac: No Edema, No Syncope Abdominal/Gastrointestinal: No Abdominal Pain, No Nausea, No Vomiting, No Diarrhea Genitourinary Symptoms: No Dysuria Musculoskeletal: No Back Pain, No Neck Pain Skin: No Rash Neurological: No Dizziness, No Focal Weakness, No Sensory Changes Psychological: No Symptoms Endocrine: No Symptoms All Other Systems: Reviewed and Negative - Past Medical History Pertinent Past Medical History: Yes Neurological History: No Pertinent History ENT History: No Pertinent History Cardiac History: Coronary Artery Disease, Myocardial Infarction ([place]) Respiratory History: No Pertinent History Endocrine Medical History: No Pertinent History Musculoskeletal History: No Pertinent History GI Medical History: No Pertinent History History: No Pertinent History Psycho-Social History: No Pertinent History Female Reproductive Disorders: No Pertinent History Other Medical History: non verbal- - Past Surgical History Past Surgical History: Yes Neuro Surgical History: No Pertinent History Cardiac: Cardiac Stent Respiratory: No Pertinent History Gastrointestinal: Cholecystectomy Musculoskeletal: Orthopedic Surgery Female Surgical History: Hysterectomy, Section Other Surgical History: non verbal no scars noted - Social History Smoking Status: Former smoker Exposure to second hand smoke: Yes Drug Use: none Patient Lives Alone: No - Nursing Vital Signs Nursing Vital Signs: Initial Vital Signs Temperature 97.5 F 05/24/19 17:58 Pulse Rate 78 05/24/19 17:58 Respiratory Rate 18 05/24/19 17:58 Blood Pressure 190/96 05/24/19 17:58 O2 Sat by Pulse Oximetry 97 05/24/19 17:58 Pain Scale Pain Intensity 3 - Physical Exam General Appearance: no apparent distress, alert Eye Exam: PERRL/EOMI, eyes nml inspection Ears, Nose, Throat Exam: normal ENT inspection, moist mucous membranes Neck Exam: normal inspection, non-tender, supple, full range of motion Respiratory Exam: normal breath sounds, lungs clear, wheezing, No respiratory distress Cardiovascular Exam: regular rate/rhythm, normal heart sounds Gastrointestinal/Abdomen Exam: soft, No tenderness, No mass Back Exam: normal inspection, No CVA tenderness, No vertebral tenderness Extremity Exam: normal inspection, normal range of motion Neurologic Exam: alert, oriented x 3, cooperative, normal mood/affect, sensation nml, No motor deficits Skin Exam: normal color, warm, dry SpO2: 97 - Course EKG Interpreted by Me: RATE, NORMAL AXIS - Radiology Exams Chest X-ray Interpretation: No Pneumonia, No Pneumothorax, No Infiltrates, Nml Mediastinum, Displaced Fracture Ordered Tests: Active Orders 24 hr Category Date Time Status Training Systems Officer STAT Care 05/24/19 18:14 Active EKG-ER Only STAT Care 05/24/19 18:13 Active IV Insertion STAT Care 05/24/19 18:13 Active Pulse Oximetry (ED) STAT Care 05/24/19 18:13 Active CHEST 1 VIEW (PORTABLE) Stat Exams 05/24/19 18:14 Taken CBC W DIFF Stat Lab 05/24/19 18:37 Completed CMP Stat Lab 05/24/19 18:37 Completed D-DIMER QUANTITATIVE Stat Lab 05/24/19 18:37 Completed PROTIME WITH INR Stat Lab 05/24/19 18:37 Completed PTT Stat Lab 05/24/19 18:37 Completed TROPONIN Q3H Lab 05/24/19 18:37 Completed TROPONIN Q3H Lab 05/24/19 21:15 Ordered TROPONIN Q3H Lab 05/25/19 00:15 Ordered TROPONIN Q3H Lab 05/25/19 03:15 Ordered TROPONIN Q3H Lab 05/25/19 06:15 Ordered UA W/RFX UR CULTURE Stat Lab 05/24/19 21:07 Ordered Peak Expiratory Flow Rate ONCE RT 05/24/19 19:22 Active Respiratory Therapy Assessment DAILY RT 05/24/19 19:22 Active Medication Summary Discontinued Medications Generic Name Dose Route Start Last Admin Trade Name Freq PRN Reason Stop Dose Admin Albuterol/Ipratropium 3 ml 05/24/19 18:58 05/24/19 19:18 Duoneb 0.5-3 Mg/3 Ml Neb IH 05/24/19 18:59 3 ml STAT ONE Administration Albuterol/Ipratropium Confirm 05/24/19 19:16 Duoneb 0.5-3 Mg/3 Ml Neb Administered 05/24/19 19:17 Dose 3 ml IH .STK-MED ONE Aspirin 324 mg 05/24/19 20:56 05/24/19 21:04 Baby Aspirin 81 Mg Chew PO 05/24/19 20:57 324 mg STAT ONE Administration Methylprednisolone Sodium Succinate 125 mg 05/24/19 19:00 05/24/19 19:15 Solu-Medrol 125 Mg IV 05/24/19 19:01 125 mg STAT ONE Administration Methylprednisolone Sodium Succinate Confirm 05/24/19 19:12 Solu-Medrol 125 Mg Administered 05/24/19 19:13 Dose 125 mg .ROUTE .STK-MED ONE Morphine Sulfate 4 mg 05/24/19 18:59 05/24/19 19:16 Morphine Sulfate 4 Mg Inj IV 05/24/19 19:00 4 mg STAT ONE Administration Morphine Sulfate Confirm 05/24/19 19:12 Morphine Sulfate 4 Mg Inj Administered 05/24/19 19:13 Dose 4 mg .ROUTE .STK-MED ONE Morphine Sulfate 2 mg 05/24/19 21:09 Morphine Sulfate 2 Mg Inj IV 05/24/19 21:10 STAT ONE Nitroglycerin 1 gm 05/24/19 21:07 Nitro-Bid 2% Ud Packets TOP 05/24/19 21:08 STAT ONE Lab/Rad Data: Laboratory Result Diagrams 05/24/19 18:37 05/24/19 18:37 Laboratory Results 05/24/19 05/24/19 05/24/19 Range/Units 18:37 18:37 18:37 WBC (4.0-10.5) K/mm3 RBC (4.1-5.4) M/mm3 Hgb (12.0-16.0) gm/dl Hct (35-47) % MCV (78-100) fl MCH (26-32) pg MCHC (32-36) g/dl RDW (11.5-14.0) % Plt Count (150-450) K/mm3 MPV (7.5-11.0) fl Gran % (36.0-66.0) % Eos # (Auto) (0-0.5) Absolute Lymphs (auto) (1.0-4.6) Absolute Monos (auto) (0.0-1.3) Lymphocytes % (24.0-44.0) % Monocytes % (0.0-12.0) % Eosinophils % (0.00-5.0) % Basophils % (0.0-0.4) % Absolute Granulocytes (1.4-6.9) Basophils # (0-0.4) PT 10.1 (9.95-12.35) SECONDS INR 0.90 (0.8-3.0) APTT 30.7 (25.3-37.0) SECONDS D-Dimer 378 (215-500) ng/mL Sodium 139 (137-145) mmol/L Potassium 4.4 (3.5-5.1) mmol/L Chloride 101 (98-107) mmol/L Carbon Dioxide 28 (22-30) mmol/L Anion Gap 14.6 (5-15) MEQ/L BUN 21 H (7-17) mg/dL Creatinine 0.70 (0.52-1.04) mg/dL Estimated GFR > 60.0 ML/MIN Glucose 102 (74-106) mg/dL Calcium 10.1 (8.4-10.2) mg/dL Total Bilirubin 0.40 (0.2-1.3) mg/dL AST 20 (14-36) U/L ALT 16 (0-35) U/L Alkaline Phosphatase 88 (38-126) U/L Troponin I < 0.012 (0.000-0.034) ng/mL Serum Total Protein 7.7 (6.3-8.2) g/dL Albumin 4.5 (3.5-5.0) g/dL 05/24/19 Range/Units 18:37 WBC 9.0 (4.0-10.5) K/mm3 RBC 4.64 (4.1-5.4) M/mm3 Hgb 15.2 (12.0-16.0) gm/dl Hct 45.6 (35-47) % MCV 98.3 (78-100) fl MCH 32.8 H (26-32) pg MCHC 33.3 (32-36) g/dl RDW 13.1 (11.5-14.0) % Plt Count 268 (150-450) K/mm3 MPV 10.5 (7.5-11.0) fl Gran % 69.6 H (36.0-66.0) % Eos # (Auto) 0.07 (0-0.5) Absolute Lymphs (auto) 1.83 (1.0-4.6) Absolute Monos (auto) 0.80 (0.0-1.3) Lymphocytes % 20.4 L (24.0-44.0) % Monocytes % 8.9 (0.0-12.0) % Eosinophils % 0.8 (0.00-5.0) % Basophils % 0.3 (0.0-0.4) % Absolute Granulocytes 6.23 (1.4-6.9) Basophils # 0.03 (0-0.4) PT (9.95-12.35) SECONDS INR (0.8-3.0) APTT (25.3-37.0) SECONDS D-Dimer (215-500) ng/mL Sodium (137-145) mmol/L Potassium (3.5-5.1) mmol/L Chloride (98-107) mmol/L Carbon Dioxide (22-30) mmol/L Anion Gap (5-15) MEQ/L BUN (7-17) mg/dL Creatinine (0.52-1.04) mg/dL Estimated GFR ML/MIN Glucose (74-106) mg/dL Calcium (8.4-10.2) mg/dL Total Bilirubin (0.2-1.3) mg/dL AST (14-36) U/L ALT (0-35) U/L Alkaline Phosphatase (38-126) U/L Troponin I (0.000-0.034) ng/mL Serum Total Protein (6.3-8.2) g/dL Albumin (3.5-5.0) g/dL - Progress Air Movement: fair Progress Note: 05/24/19 21:16 Wheezing resolved after duo neb treatment. Discussed with Dr.: Other (Case discussed with Dr. Javier of [facility] who accepts transfer) Will see patient in: hospital (observation) Counseled pt/family regarding: lab results, diagnosis, rad results - Departure Departure Disposition: Observation Clinical Impression: ACS (acute coronary syndrome) Condition: Fair Critical Care Time: No Referrals: BERNIE MCNEAL [Primary Care Provider] -
[2019-05-24] MEDS ORDERED: DUONEB 0.5-3 MG/3 ml Neb IH ONE ×2 (18:58→19:16)
[2019-05-24] MEDS ORDERED: MORPHINE SULFATE 4 MG INJ IV ONE (18:59)
[2019-05-24] MEDS ORDERED: solu-MEDROL 125 MG IV ONE (19:00)
[2019-05-24] MEDS ORDERED: MORPHINE SULFATE 4 MG INJ ONE (19:12)
[2019-05-24] MEDS ORDERED: solu-MEDROL 125 MG ONE (19:12)
[2019-05-24 19:35] VITALS: BP 173/91; PULSE 60
[2019-05-24] MEDS ORDERED: BABY ASPIRIN 81 MG CHEW PO ONE (20:56)
[2019-05-24] MEDS ORDERED: NITRO-BID 2% UD PACKETS TOP ONE (21:07)
[2019-05-24] MEDS ORDERED: MORPHINE SULFATE 2 MG INJ IV ONE (21:09)
[2019-05-24] MEDS ORDERED: MORPHINE SULFATE 2 MG INJ ONE (21:15)
[2019-05-24] MEDS ORDERED: NITRO-BID 2% UD PACKETS ONE (21:15)
[2019-05-24 21:20] LABS: Appearance CLEAR (CLEAR); Bilirubin NEGATIVE (NEGATIVE); Blood NEGATIVE Ery/ul (0-5); Glucose NEGATIVE (NEGATIVE); Ketones NEGATIVE (NEGATIVE); Leukocyte Esterase NEGATIVE (NEGATIVE); Mucus SLIGHT /HPF (NEGATIVE); Nitrite NEGATIVE (NEGATIVE); Protein,Urine Dip NEGATIVE (Negative); Specific Gravity 1.016 (1.005-1.025); Urobilinogen NEGATIVE mg/dL (0-1)
[2019-05-24 21:24] LABS: Bacteria NONE SEEN /HPF (NEGATIVE)
--- NOTE | 2019-05-25 09:07 | XRAY ---
Indication: Pain. Comparison: March 03, 2018. Portable chest again demonstrates normal heart and lungs. Bony thorax intact again with minimal degenerative changes, minimal scoliosis, and lower cervical fusion surgery. No new/acute findings.
== END 2019-05-24 21:35 | disposition short-term general hospital (02) ==
LOC: ED 17:57
DX: I24.9 Acute ischemic heart disease, unspecified (principal); Z79.899 Other long term (current) drug therapy; I25.10 Atherosclerotic heart disease of native coronary artery without angina pectoris; I25.2 Old myocardial infarction
CPT/HCPCS: 36000; 36415; 71045; 80053; 81001; 84484; 85025; 85379; 85610; 85730; 93005; 93041; 94150; 94640; 94760; 96374; 96375; 96376; 99284; J2270; J2930; A9270-GY

== ENCOUNTER 2019-08-31 11:21 | Emergency (ER) | payer OTHER ==
--- NOTE | 2019-08-31 11:36 | ERPHSYRPT ---
- History of Present Illness Time Seen by Provider: 08/31/19 11:36 Source: patient Exam Limitations: no limitations Physician History: This is a 58-year-old female who presents with left-sided lower back pain which radiates down to her buttock and into her left lower extremity. It is sharp and shooting. Patient states that 2 days ago she was out working in her garden flower bed for an extended period of time. Patient had some sun exposure and sunburn and therefore she took Benadryl the next day for this condition. This made her sleepy and she laid around in bed for most of the day yesterday. She woke up this morning with significant left sided lower back pain. She has no urinary symptoms. She has no hematuria or dysuria. She has no abdominal pain. She has no chest pain she has no shortness of breath. Patient is chronically on Percocet and Soma medications. She took a Percocet 30 minutes prior to her arrival here. The last soma medication she took was last night. Patient did not fall or suffer any trauma or injury to her back. Timing/Duration: yesterday, worse Method of Injury: bending, twisted, turning Quality: sharp, stabbing Back Pain Location: lumbar spine Back Pain Radiation: buttocks, upper legs Severity of Pain-Max: moderate Severity of Pain-Current: moderate Modifying Factors: Improves With: movement Associated Symptoms: lower back pain, muscle spasms, No urinary incontinence, No nausea, No vomiting, No numbness in legs/feet Previous symptoms: same symptoms as today Allergies/Adverse Reactions: No Known Drug Allergies Allergy (Verified 05/24/19 18:09) Home Medications: Carisoprodol 350 mg [Soma 350 mg] 350 mg PO HS 01/07/12 [History] Levothyroxine Sodium 150 Mcg [Synthroid 150 Mcg] 125 mcg PO DAILY 01/08/12 [ History] Oxycodone HCl/Acetaminophen [Percocet 10-325 mg Tablet] 1 tab PO Q6H PRN [History] Duloxetine HCl 60 mg PO BID 05/24/19 [History] PANTOPRAZOLE 40 mg Tablet [Protonix 40MG Tablet] 40 mg PO QAM 05/24/19 [ History] Phentermine HCl 37.5 mg PO DAILY 01/29/20 [History] Hx Tetanus, Diphtheria Vaccination/Date Given: No Hx Influenza Vaccination/Date Given: Yes Hx Pneumococcal Vaccination/Date Given: Yes Travel Risk - International Travel Have you traveled outside of the country in past 3 weeks: No Have you or anyone close to you been diagnosed with or: No Do your reside in a community with a known COVID-19 case?: Yes If Yes where:: [place] - Coronavirus Screening Has patient experienced Coronavirus symptoms: No - Review of Systems Constitutional: No Symptoms Eyes: No Symptoms Ears, Nose, & Throat: No Symptoms Respiratory: No Symptoms Cardiac: No Symptoms Genitourinary Symptoms: No Symptoms Musculoskeletal: Back Pain Skin: No Symptoms Neurological: No Symptoms Psychological: No Symptoms Endocrine: No Symptoms Hematologic/Lymphatic: No Symptoms Immunological/Allergic: No Symptoms All Other Systems: Reviewed and Negative - Past Medical History Pertinent Past Medical History: Yes Neurological History: No Pertinent History ENT History: No Pertinent History Cardiac History: Coronary Artery Disease, Myocardial Infarction ([place]) Respiratory History: No Pertinent History Endocrine Medical History: No Pertinent History Musculoskeletal History: No Pertinent History GI Medical History: No Pertinent History History: No Pertinent History Psycho-Social History: No Pertinent History Female Reproductive Disorders: No Pertinent History Other Medical History: non verbal- - Past Surgical History Past Surgical History: Yes Neuro Surgical History: No Pertinent History Cardiac: Cardiac Stent Respiratory: No Pertinent History Gastrointestinal: Cholecystectomy Musculoskeletal: Orthopedic Surgery Female Surgical History: Hysterectomy, Section Other Surgical History: non verbal no scars noted - Social History Smoking Status: Former smoker Exposure to second hand smoke: Yes Drug Use: none Patient Lives Alone: No - Nursing Vital Signs Nursing Vital Signs: Initial Vital Signs Temperature 98.9 F 08/31/19 11:27 Pulse Rate 90 08/31/19 11:27 Respiratory Rate 22 08/31/19 11:27 Blood Pressure 137/87 08/31/19 11:27 O2 Sat by Pulse Oximetry 98 08/31/19 11:27 Pain Scale Pain Intensity [Lower 10 Posterior Back] Pain Intensity 10 - Physical Exam General Appearance: moderate distress, alert, anxiety Eye Exam: PERRL/EOMI, eyes nml inspection Ears, Nose, Throat Exam: normal ENT inspection, moist mucous membranes Neck Exam: normal inspection, non-tender, supple, full range of motion Respiratory Exam: normal breath sounds, lungs clear, airway intact, No chest tenderness, No respiratory distress Cardiovascular Exam: regular rate/rhythm, normal heart sounds, normal peripheral pulses Gastrointestinal Exam: No tenderness Pelvic Exam: not done Rectal Exam: not done Back Exam: normal inspection, normal range of motion, decreased range of motion , muscle spasm (Left lower lumbar paraspinous muscle region), No CVA tenderness , No vertebral tenderness Extremity Exam: normal inspection, normal range of motion, pelvis stable Neurologic Exam: alert, oriented x 3, cooperative, junior buyer II-XII nml as tested, normal mood/affect Skin Exam: normal color, warm, dry Lymphatic Exam: No adenopathy SpO2 Interpretation: normal O2 Delivery: Room Air - Course Nursing assessment & vital signs reviewed: Yes Ordered Tests: Medication Summary Generic Name Dose Route Start Last Admin Trade Name Freq PRN Reason Stop Dose Admin Lorazepam 1 mg 08/31/19 11:44 Ativan 2 Mg/1 Ml Vial IM 08/31/19 11:45 STAT ONE Methylprednisolone Sodium Succinate 125 mg 08/31/19 11:44 Solu-Medrol 125 Mg IM 08/31/19 11:45 STAT ONE - Progress Progress: improved Progress Note: 08/31/19 11:52 Medical decision making: This patient appears to have sciatica with muscle spasm in her left paraspinous muscle region. I elected not to perform an x-ray of her lumbar spine because there was no trauma involved. I am providing patient with a steroid injection as well as Ativan injection intramuscularly for muscle relaxation. I will not be providing her with any narcotic pain medicine since she just took a Percocet 30 minutes prior to her arrival today. I will have her increase her Soma medication at home and to continue her Percocet medication at home as prescribed. Counseled pt/family regarding: diagnosis, need for follow-up - Departure Departure Disposition: Home Clinical Impression: Sciatica, Back pain Condition: Stable Critical Care Time: No Referrals: BERNIE MCNEAL [Primary Care Provider] - Additional Instructions: Continue your Percocet medication at home as prescribed. Increase your Soma medication to 3 times a day for the next 3 days. Follow-up with your primary care physician for persistent or worsening pain. Prescriptions: Prednisone 10 mg [Deltasone 10 mg] 10 mg PO TID #12 tablet
[2019-08-31] MEDS ORDERED: solu-MEDROL 125 MG IM ONE (11:44)
[2019-08-31] MEDS ORDERED: Ativan 2 MG/1 ML VIAL IM ONE (11:44)
[2019-08-31] MEDS ORDERED: solu-MEDROL 125 MG ONE (11:48)
[2019-08-31] MEDS ORDERED: Ativan 2 MG/1 ML VIAL ONE (11:48)
[2019-08-31 12:24] VITALS: BP 144/77; PULSE 73; O2SAT 96
== END 2019-08-31 12:30 | disposition home or self-care (01) ==
LOC: ED 11:21
DX: M54.42 Lumbago with sciatica, left side (principal); X50.1XXA Overexertion from prolonged static or awkward postures, initial encounter; Y93.H2 Activity, gardening and landscaping; Y92.096 Garden or yard of other non-institutional residence as the place of occurrence of the external cause; I25.10 Atherosclerotic heart disease of native coronary artery without angina pectoris; I25.2 Old myocardial infarction
CPT/HCPCS: 96372; 99284; J2060; J2930

== ENCOUNTER 2019-10-18 09:53 | Emergency (ER) | payer OTHER ==
[2019-10-18] MEDS ORDERED: TORAdol 30 mg Injection IM ONE (10:18)
[2019-10-18] MEDS ORDERED: Norflex 60 MG/2 ML IM ONE (10:18)
--- NOTE | 2019-10-18 10:20 | ERPHSYRPT ---
- History of Present Illness Time Seen by Provider: 10/18/19 10:10 Physician History: 58 years old female presented in the ER with chief complaint of right neck, shoulder and right upper back pain for the last 3 days he woke up with. Moderate to severe intensity, sharp in nature, aggravated with movements of shoulder, unable to move neck in the right direction without pain and unable to flex neck which pulls on the upper back. Denies any fall trauma. No pain in the chest otherwise. No difficulty breathing or palpitations. Denies any numbness tingling or weakness of right upper extremity. Patient report having similar symptoms in the past which improved after taking muscle relaxants. Severity of Pain-Max: severe Severity of Pain-Current: severe Extremities Pain Location: shoulder: right Modifying Factors: Improves With: immobilization, movement Associated Symptoms: back pain, neck pain Allergies/Adverse Reactions: No Known Drug Allergies Allergy (Verified 10/18/19 09:57) Home Medications: Carisoprodol 350 mg [Soma 350 mg] 350 mg PO HS 01/07/12 [History] Levothyroxine Sodium 150 Mcg [Synthroid 150 Mcg] 112 mcg PO DAILY 01/08/12 [History] Oxycodone HCl/Acetaminophen [Percocet 10-325 mg Tablet] 1 tab PO Q6H PRN 01/07/18 [History] PANTOPRAZOLE 40 mg Tablet [Protonix 40MG Tablet] 40 mg PO QAM 05/24/19 [H istory] Phentermine HCl 37.5 mg PO DAILY 05/24/19 [History] Magnesium Oxide 400 mg [Mag-Ox 400] 1 tab PO DAILY 10/18/19 [History] Hx Tetanus, Diphtheria Vaccination/Date Given: No Hx Influenza Vaccination/Date Given: Yes Hx Pneumococcal Vaccination/Date Given: Yes - Past Medical History Pertinent Past Medical History: Yes Neurological History: No Pertinent History ENT History: No Pertinent History Cardiac History: Coronary Artery Disease, Myocardial Infarction ([place]) Respiratory History: No Pertinent History Endocrine Medical History: No Pertinent History Musculoskeletal History: No Pertinent History GI Medical History: No Pertinent History History: No Pertinent History Psycho-Social History: No Pertinent History Female Reproductive Disorders: No Pertinent History Other Medical History: non verbal- - Past Surgical History Past Surgical History: Yes Neuro Surgical History: No Pertinent History Cardiac: Cardiac Stent Respiratory: No Pertinent History Gastrointestinal: Cholecystectomy Musculoskeletal: Orthopedic Surgery Female Surgical History: Hysterectomy, Section Other Surgical History: non verbal no scars noted - Social History Smoking Status: Former smoker Exposure to second hand smoke: Yes Drug Use: none Patient Lives Alone: No - Nursing Vital Signs Nursing Vital Signs: Initial Vital Signs Temperature 98.3 F 10/18/19 10:01 Pulse Rate 80 10/18/19 10:01 Respiratory Rate 18 10/18/19 10:01 Blood Pressure 141/89 10/18/19 10:01 O2 Sat by Pulse Oximetry 97 10/18/19 10:01 Pain Scale Pain Intensity 71 - Physical Exam General Appearance: no apparent distress, alert Eyes, Ears, Nose, Throat Exam: normal ENT inspection, TMs normal, pharynx normal Neck Exam: normal inspection, supple, limited range of motion (Because of pain on the right), tenderness lateral (Right side sternomastoid and trapezius. No midline tenderness.) Cardiovascular/Respiratory Exam: chest non-tender, normal breath sounds, regular rate/rhythm Abdominal Exam: non-tender, soft, no organomegaly Back Exam: normal inspection, decreased range of motion, muscle spasm (Thoracic paraspinal muscles on the right with areas of point tenderness), No normal range of motion, No vertebral tenderness Shoulder Exam: normal inspection, limited ROM (Right), pain, soft tissue tenderness (Skull tenderness), No bone tenderness Elbow/Forearm Exam: normal inspection Wrist Exam: normal inspection Hand Exam: normal inspection Neuro/Tendon Exam: normal sensation, normal motor functions Mental Status Exam: alert, oriented x 3, cooperative Skin Exam: normal color SpO2 Interpretation: normal O2 Delivery: Room Air - Course Nursing assessment & vital signs reviewed: Yes Ordered Tests: Active Orders 24 hr Category Date Time Status EKG-ER Only STAT Care 10/18/19 10:18 Completed CHEST 2 VIEWS (PA AND LAT) Stat Exams 10/18/19 11:11 Completed SHOULDER Stat Exams 10/18/19 11:11 Completed Medication Summary Discontinued Medications Generic Name Dose Route Start Last Admin Trade Name Freq PRN Reason Stop Dose Admin Ketorolac Tromethamine 30 mg 10/18/19 10:18 10/18/19 10:32 Toradol 30 Mg Injection IM 10/18/19 10:19 30 mg STAT ONE Administration Ketorolac Tromethamine Confirm 10/18/19 10:29 Toradol 30 Mg Injection Administered 10/18/19 10:30 Dose 30 mg .ROUTE .STK-MED ONE Orphenadrine Citrate 60 mg 10/18/19 10:18 10/18/19 10:31 Norflex 60 Mg/2 Ml IM 10/18/19 10:19 60 mg STAT ONE Administration Orphenadrine Citrate Confirm 10/18/19 10:29 Norflex 60 Mg/2 Ml Administered 10/18/19 10:30 Dose 60 mg .ROUTE .STK-MED ONE - Progress Progress: pain not gone completely, re-examined Progress Note: She is given Toradol and Norflex, on reevaluation her pain is much improved. X- rays of shoulder and chest are negative for any acute findings. I believe patient has muscle spasm, given muscle relaxant and pain medication which she is on already. Does not seem cardiac or pulmonary at all. Do not think she needs any work-up for that. Stable for discharge with outpatient follow-up. Signs symptoms of worsening needing return to ER which she seemed understanding. Counseled pt/family regarding: diagnosis, need for follow-up, rad results - Departure Departure Disposition: Home Clinical Impression: Muscle spasm, Cervicalgia Condition: Stable Critical Care Time: No Referrals: DOCTOR,NO FAMILY [Primary Care Provider] - RICO HOFFMAN [ACTIVE STAFF] - (1-2 days for re evaluation) Instructions: Muscle Spasms (DC) Additional Instructions: take pain meds which you have at home as recommended. follow up with PCP for re evaluation . return for worsening. Prescriptions: Cyclobenzaprine HCl [Flexeril] 10 mg PO TID PRN #20 tablet PRN Reason: Muscle Spasms
[2019-10-18] MEDS ORDERED: TORAdol 30 mg Injection ONE (10:29)
[2019-10-18] MEDS ORDERED: Norflex 60 MG/2 ML ONE (10:29)
--- NOTE | 2019-10-18 11:22 | XRAY ---
Indication: Right upper back pain. Comparison: None 3 view right shoulder demonstrates mild AC degenerative hypertrophy and partially visualized lower cervical fusion hardware. No other bony, articular, or soft tissue abnormalities.
--- NOTE | 2019-10-18 11:27 | XRAY ---
Indication: Pain with respiration. Comparison: May 24, 2019. PA/lateral chest remains clear. Heart and mediastinal structures within normal limits. Bony thorax intact again with minimal degenerative changes, minimal scoliosis, and lower cervical fusion surgery. Impression: Continued nonacute chest with chronic features.
[2019-10-18 12:08] VITALS: BP 142/75; PULSE 71; O2SAT 97
== END 2019-10-18 12:08 | disposition home or self-care (01) ==
LOC: ED 09:53
DX: R25.2 Cramp and spasm (principal); M54.2 Cervicalgia; Z79.899 Other long term (current) drug therapy; I25.10 Atherosclerotic heart disease of native coronary artery without angina pectoris; I25.2 Old myocardial infarction
CPT/HCPCS: 71046; 73030; 93005; 96372; 99284; J1885; J2360

== ENCOUNTER 2021-02-23 17:25 | Emergency (ER) | payer OTHER ==
[2021-02-23] MEDS ORDERED: Sodium Chloride 0.9% 1000 ML 1,000 ML IV STA (17:50)
--- NOTE | 2021-02-23 18:08 | ERPHSYRPT ---
- History of Present Illness Historian: patient Exam Limitations: no limitations Patient Subjective Stated Complaint: pt here for lower abd pain and nausea for a couple days, see being treated for a UTI currently. pt has chronic back pain Triage Nursing Assessment: pt alert, walked in, resp easy, skin w/d/p. face mask inplace, holding abd, abd soft Timing/Duration: day(s) Quality: cramping Abdominal Pain Onset Location: generalized abdomen Severity of Pain-Max: mild Severity of Pain-Current: moderate Associated Symptoms: nausea Hx Tetanus, Diphtheria Vaccination/Date Given: No Hx Influenza Vaccination/Date Given: Yes Hx Pneumococcal Vaccination/Date Given: No Immunizations Up to Date: Yes <MARGARET BARNARD - Last Filed: 02/23/21 18:05> <DEMETRIO PRINCE - Last Filed: 02/23/21 19:26> - History of Present Illness Time Seen by Provider: 02/23/21 18:05 Physician History: Patient is 60-year-old female with significant past medical history of gastroesophageal reflux disease was diagnosed with urinary tract infection 2 weeks ago and was started on cephalexin. Patient continued to have abdominal pain mainly in the lower abdominal area as well as around periumbilical area. Patient denies any fever chills or vomiting. Patient also denies any blood in the stool or urine. Patient appetite has a little bit decreased but otherwise denies any other symptoms. (MARGARET BARNRAD) Allergies/Adverse Reactions: Sulfa (Sulfonamide Antibiotics) Allergy (Verified 02/23/21 17:38) Home Medications: Carisoprodol 350 mg [Soma 350 mg] 350 mg PO HS 01/07/12 [History] Levothyroxine Sodium 150 Mcg [Synthroid 150 Mcg] 112 mcg PO DAILY 01/08/12 [History] Oxycodone HCl/Acetaminophen [Percocet 10-325 mg Tablet] 1 tab PO Q6H PRN 01/07/18 [History] PANTOPRAZOLE 40 mg Tablet [Protonix 40MG Tablet] 40 mg PO QAM 05/24/19 [History] Phentermine HCl 37.5 mg PO DAILY 05/24/19 [History] Magnesium Oxide 400 mg [Mag-Ox 400] 1 tab PO DAILY 10/18/19 [History] Cephalexin Mh 500 mg [Keflex 500 mg] 1 ea BID 02/23/21 [History] Travel Risk - International Travel Have you traveled outside of the country in past 3 weeks: No - Coronavirus Screening Are you exhibiting any of the following symptoms?: No Close contact with a COVID-19 positive Pt in past 14-21 Days: No - Vaccine Status Have you recieved a Covid-19 vaccination: No <EVON - Last Filed: 02/23/21 18:05> - Review of Systems Constitutional: No Fever, No Chills Eyes: No Symptoms Ears, Nose, & Throat: No Symptoms Respiratory: No Cough, No Dyspnea Cardiac: No Chest Pain, No Edema, No Syncope Abdominal/Gastrointestinal: Abdominal Pain, Nausea, No Vomiting, No Diarrhea Genitourinary Symptoms: No Dysuria Musculoskeletal: No Back Pain, No Neck Pain Skin: No Rash Neurological: No Dizziness, No Focal Weakness, No Sensory Changes Psychological: No Symptoms Endocrine: No Symptoms All Other Systems: Reviewed and Negative <EVON, - Last Filed: 02/23/21 18:05> - Past Medical History Pertinent Past Medical History: Yes Neurological History: No Pertinent History ENT History: No Pertinent History Cardiac History: Coronary Artery Disease, High Cholesterol, Myocardial Infarction (VT), Other Respiratory History: Asthma Endocrine Medical History: Hypothyroidism Musculoskeletal History: Degenerative Disk Disease, Osteoarthritis GI Medical History: No Pertinent History History: No Pertinent History Psycho-Social History: No Pertinent History Female Reproductive Disorders: No Pertinent History Other Medical History: 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 PATIENT REPORTS HX SI JOINT PAIN GETTING INJECTIONS VIA [facility] AND UNDER HIS CARE FOR PAIN MANAGEMENT, [facility] 2020 - Past Surgical History Past Surgical History: Yes Neuro Surgical History: No Pertinent History Cardiac: Cardiac Stent Respiratory: No Pertinent History Gastrointestinal: Cholecystectomy Musculoskeletal: Orthopedic Surgery Female Surgical History: Hysterectomy, Section Other Surgical History: neck, knee - Social History Smoking Status: Former smoker Exposure to second hand smoke: No Drug Use: none Patient Lives Alone: No - Female History Hx Last Menstrual Period: post Hx Now: No <EVON, - Last Filed: 02/23/21 18:05> - Physical Exam General Appearance: no apparent distress, alert Eye Exam: PERRL/EOMI, eyes nml inspection Ears, Nose, Throat Exam: normal ENT inspection, pharynx normal, moist mucous membranes Neck Exam: normal inspection, non-tender, supple, full range of motion Respiratory Exam: normal breath sounds, lungs clear, No respiratory distress Cardiovascular Exam: regular rate/rhythm, normal heart sounds Gastrointestinal/Abdomen Exam: soft, No tenderness, No mass Back Exam: normal inspection, normal range of motion, No CVA tenderness, No vertebral tenderness Extremity Exam: normal inspection, normal range of motion, pelvis stable Neurologic Exam: alert, oriented x 3, cooperative, normal mood/affect, nml cerebellar function, sensation nml, No motor deficits Skin Exam: normal color, warm, dry SpO2: 96 <EVON - Last Filed: 02/23/21 18:05> - Nursing Vital Signs Nursing Vital Signs: Initial Vital Signs Temperature 97.8 F 02/23/21 17:38 Pulse Rate 87 02/23/21 17:38 Respiratory Rate 18 02/23/21 17:38 Blood Pressure 142/89 02/23/21 17:38 O2 Sat by Pulse Oximetry 96 02/23/21 17:38 Pain Scale Pain Intensity 6 - Course Nursing assessment & vital signs reviewed: Yes - Radiology Exams Other X-ray Interpretation: Reviewed by nh <EVON - Last Filed: 02/23/21 18:05> Ordered Tests: Active Orders 24 hr Category Date Time Status ABDOMEN AND PELVIS W/0 CONTRAS [CT] Stat Exams 02/23/21 18:53 Taken OBSTR/ACUTE ABDOMEN SERIES Stat Exams 02/23/21 18:27 Taken AMYLASE Stat Lab 02/23/21 18:11 Completed CBC W DIFF Stat Lab 02/23/21 18:11 Completed CMP Stat Lab 02/23/21 18:11 Completed LIPASE Stat Lab 02/23/21 18:11 Completed UA W/RFX UR CULTURE Stat Lab 02/23/21 18:11 Completed Medication Summary Discontinued Medications Generic Name Dose Route Start Last Admin Trade Name Freq PRN Reason Stop Dose Admin Sodium Chloride 1,000 mls @ 999 mls/hr 02/23/21 17:50 02/23/21 18:11 Sodium Chloride 0.9% 1000 Ml IV 02/23/21 18:50 999 mls/hr .Q1H1M STA Administration Sodium Chloride Confirm 02/23/21 18:09 Sodium Chloride 0.9% 1000 Ml Administered 02/23/21 18:10 Dose 1,000 mls @ .ROUTE .[facility] Lab/Rad Data: Laboratory Result Diagrams 02/23/21 18:11 02/23/21 18:11 Laboratory Results 02/23/21 02/23/21 02/23/21 Range/Units 18:11 18:11 18:11 WBC 5.7 (4.0-10.5) K/mm3 RBC 4.44 (4.1-5.4) M/mm3 Hgb 13.9 (12.0-16.0) gm/dl Hct 43.1 (35-47) % MCV 97.1 (78-100) fl MCH 31.3 (26-32) pg MCHC 32.3 (32-36) g/dl RDW 12.2 (11.5-14.0) % Plt Count 194 (150-450) K/mm3 MPV 10.0 (7.5-11.0) fl Gran % 62.6 (36.0-66.0) % Eos # (Auto) 0.13 (0-0.5) Absolute Lymphs (auto) 1.49 (1.0-4.6) Absolute Monos (auto) 0.48 (0.0-1.3) Lymphocytes % 26.2 (24.0-44.0) % Monocytes % 8.4 (0.0-12.0) % Eosinophils % 2.3 (0.00-5.0) % Basophils % 0.5 (0.0-0.4) % Absolute Granulocytes 3.56 (1.4-6.9) Basophils # 0.03 (0-0.4) Sodium 139 (137-145) mmol/L Potassium 4.3 (3.5-5.1) mmol/L Chloride 102 (98-107) mmol/L Carbon Dioxide 30 (22-30) mmol/L Anion Gap 11.3 (5-15) MEQ/L BUN 17 (7-17) mg/dL Creatinine 0.70 (0.52-1.04) mg/dL Estimated GFR > 60.0 ML/MIN Glucose 129 H (74-106) mg/dL Calcium 9.8 (8.4-10.2) mg/dL Total Bilirubin 0.40 (0.2-1.3) mg/dL AST 23 (14-36) U/L ALT 17 (0-35) U/L Alkaline Phosphatase 95 (38-126) U/L Serum Total Protein 7.5 (6.3-8.2) g/dL Albumin 4.5 (3.5-5.0) g/dL Amylase 60 (30-110) U/L Lipase 67 (23-300) U/L Urine Color YELLOW (YELLOW) Urine Appearance SLIGHTLY CLOUDY (CLEAR) Urine pH 5.0 (5-6) Ur Specific [place] 1.024 (1.005-1.025) Urine Protein NEGATIVE (Negative) Urine Ketones NEGATIVE (NEGATIVE) Urine Blood NEGATIVE (0-5) Santy/ul Urine Nitrite NEGATIVE (NEGATIVE) Urine Bilirubin NEGATIVE (NEGATIVE) Urine Urobilinogen NEGATIVE (0-1) mg/dL Ur Leukocyte Esterase SMALL (NEGATIVE) Urine WBC (Auto) 3-5 (0-5) /HPF Urine RBC (Auto) NONE SEEN (0-2) /HPF U Epithel Cells (Auto) FEW (FEW) /HPF Urine Bacteria (Auto) RARE (NEGATIVE) /HPF Urine Culture Reflexed NO (NO) Urine Glucose NEGATIVE (NEGATIVE) mg/dL - Progress Progress: improved Counseled pt/family regarding: lab results, diagnosis, need for follow-up <DEMETRIO PRINCE - Last Filed: 02/23/21 19:26> - Progress Progress Note: 02/23/21 19:23 I did take over the patient from off going physician, Dr. Barnard. Based on my reexam and history of the patient: differential diagnosis includes kidney stone, compression fracture, infection, UTI, triple AAA - basic labs including: CBC, lipase, CMP, UA - insert IV for fluids, pain meds, nausea control - consider imaging: CT ab/pelvis Patient feels improved with medication. Labs and CT demonstrate no obvious abnormalities. We will discharge patient home at this point in time. Close follow-up with PCP. (DEMETRIO PRINCE) <MARGARET BARNARD - Last Filed: 02/23/21 18:05> - Departure Departure Disposition: Home Critical Care Time: No <DEMETRIO PRINCE - Last Filed: 02/23/21 19:26> - Departure Clinical Impression: Acute abdominal pain Condition: Stable Referrals: BERNIE MCNEAL [Primary Care Provider] - Instructions: Acute Abdomen (Belly Pain), Adult (DC) Additional Instructions: See your primary care doctor for abdominal reexam in 24 hours. Return here for any new or changing symptoms. Finish your antibiotics as prescribed.
[2021-02-23] MEDS ORDERED: Sodium Chloride 0.9% 1000 ML 1,000 ML ONE (18:09)
[2021-02-23 18:14] LABS: Absolute Neutrophil Ct (ANC) 3.56 (1.4-6.9); BASOPHIL % 0.5 % (0.0-0.4); Basophil (Absolute #) 0.03 (0-0.4); Eosinophil % 2.3 % (0.00-5.0); Eosinophil (Absolute #) 0.13 (0-0.5); Hematocrit 43.1 % (35-47); Hemoglobin 13.9 gm/dl (12.0-16.0); Lymphocyte (Absolute #) 1.49 (1.0-4.6); Lymphocytes % 26.2 % (24.0-44.0); Mean Cell Volume 97.1 fl (78-100); Mean Corpuscular Hemoglobin 31.3 pg (26-32); Mean Corpuscular Hgb Concent. 32.3 g/dl (32-36); Monocyte (Absolute #) 0.48 (0.0-1.3); Monocytes % 8.4 % (0.0-12.0); Neutrophil % 62.6 % (36.0-66.0); Platelet Count 194 K/mm3 (150-450); Red Blood Count 4.44 M/mm3 (4.1-5.4); Red Cell Distribution Width 12.2 % (11.5-14.0); White Blood Count 5.7 K/mm3 (4.0-10.5)
[2021-02-23 18:19] LABS: Appearance SLIGHTLY CLOUDY (CLEAR); Bilirubin NEGATIVE (NEGATIVE); Blood NEGATIVE Ery/ul (0-5); Glucose NEGATIVE (NEGATIVE); Ketones NEGATIVE (NEGATIVE); Leukocyte Esterase SMALL (NEGATIVE); Nitrite NEGATIVE (NEGATIVE); Protein,Urine Dip NEGATIVE (Negative); Specific Gravity 1.024 (1.005-1.025); Urobilinogen NEGATIVE mg/dL (0-1)
[2021-02-23 18:25] LABS: ALBUMIN 4.5 g/dL (3.5-5.0); ALKALINE PHOSPHATASE 95 U/L (38-126); AMYLASE 60 U/L (30-110); ANION GAP 11.3 MEQ/L (5-15); BLOOD UREA NITROGEN 17 mg/dL (7-17); CHLORIDE 102 mmol/L (98-107); Calcium 9.8 mg/dL (8.4-10.2); Carbon Dioxide 30 mmol/L (22-30); EST GLOMERULAR FILTRATION RATE > 60.0 ML/MIN; Glucose 129 mg/dL (74-106); LIPASE 67 U/L (23-300); Potassium 4.3 mmol/L (3.5-5.1); SGOT/AST 23 U/L (14-36); SGPT/ALT 17 U/L (0-35); SODIUM 139 mmol/L (137-145); Total Protein 7.5 g/dL (6.3-8.2)
[2021-02-23 18:26] LABS: Bacteria RARE /HPF (NEGATIVE); Epithelial Cells FEW /HPF (FEW); RBC NONE SEEN /HPF (0-2)
[2021-02-23 19:39] VITALS: BP 159/97; PULSE 72; O2SAT 96
--- NOTE | 2021-02-24 08:39 | XRAY ---
Indication: Lower abdomen pain. Constipation. Multiple contiguous axial images obtained through the abdomen and pelvis without contrast. Comparison: March 09, 2016. Lung bases remain clear. Heart not enlarged. Noncontrasted stomach and bowel loops nonobstructed with normal appendix. Again mild diffuse scattered colonic fecal debris throughout and minimal sigmoid diverticulosis. No free fluid/air. Cholecystectomy and hysterectomy. Remaining liver, pancreas, spleen, adrenal glands, kidneys, ureters, and bladder are unremarkable for noncontrast exam. There remains mild scattered aortoiliac calcifications without AAA. Osseous structures intact again with worsening minimal/mild degenerative spondylosis throughout the thoracolumbar spine. Impression: 1. Continued mild diffuse fecal stasis, sigmoid diverticulosis, and chronic bony findings. 2. Remaining CT abdomen/pelvis without contrast exam is negative. Comment: Preliminary interpretation made by [facility]. No critical discrepancy.
--- NOTE | 2021-02-24 08:41 | XRAY ---
Indication: Abdomen/pelvic pain. Nausea. Comparison: Chest exam October 18, 2019. 2 view abdomen nonacute and nonobstructed with mild diffuse scattered colonic fecal debris. Cholecystectomy clips and pelvic suture material. Solid organs unremarkable. Osseous structures intact with mild/moderate degenerative changes throughout the spine. Single AP chest again demonstrate normal heart and lungs with incidental right base calcified granuloma. Bony thorax intact again with mild degenerative changes and lower cervical fusion hardware. Impression: Mild fecal stasis. Continue nonacute 1V chest with chronic features.
== END 2021-02-23 19:50 | disposition home or self-care (01) ==
LOC: ED 17:25
DX: R10.9 Unspecified abdominal pain (principal); I25.10 Atherosclerotic heart disease of native coronary artery without angina pectoris; E03.9 Hypothyroidism, unspecified
CPT/HCPCS: 36415; 74022; 74176; 80053; 81001; 82150; 83690; 85025; 99284